=== PATIENT | male | born 1980 | race Caucasian/White ===

== ENCOUNTER 2016-08-24 10:48 | Emergency (ER) | payer SELFPAY ==
[2016-08-24 10:56] VITALS: BP 140/90
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
[2016-08-24 11:47] LABS: ABSOLUTE BASOPHILS # (AUTO) 0.1 10^3/uL (0.0-0.2); ABSOLUTE EOSINOPHILS # (AUTO) 0.2 10^3/uL (0.0-0.6); ABSOLUTE LYMPHOCYTES (AUTO) 1.9 10^3/uL (0.5-4.7); ABSOLUTE MONOCYTES (AUTO) 0.6 10^3/uL (0.1-1.4); ABSOLUTE NEUT (AUTO) 4.8 10^3/uL (1.7-8.2); BASOPHILS % (AUTO) 0.7 % (0-2); HEMATOCRIT 41.2 % (37.9-51.0); HEMOGLOBIN 14.2 g/dL (13.5-17.0); HGB HCT DIFFERENCE 1.4; LYMPHOCYTES % (AUTO) 24.9 % (13-45); MEAN CORPUSCULAR HEMOGLOBIN 30.8 pg (27.0-33.4); MEAN CORPUSCULAR HGB CONC 34.4 g/dL (32.0-36.0); MEAN CORPUSCULAR VOLUME 90 fl (80-97); MONOCYTES % (AUTO) 7.8 % (3-13); RED BLOOD COUNT 4.59 10^6/uL (4.35-5.55); RED CELL DISTRIBUTION WIDTH 13.6 % (11.5-14.0); SEGMENTED NEUTROPHILS % (AUTO) 64.6 % (42-78); WHITE BLOOD COUNT 7.4 10^3/uL (4.0-10.5)
[2016-08-24 11:52] LABS: APPEARANCE,URINE CLEAR; BILIRUBIN,URINE NEGATIVE (NEGATIVE); GLUCOSE, URINE NEGATIVE (NEGATIVE); KETONES,URINE NEGATIVE (NEGATIVE); LEUKOCYTE ESTERASE,URINE NEGATIVE (NEGATIVE); NITRITE,URINE NEGATIVE (NEGATIVE); PROTEIN,URINE NEGATIVE (NEGATIVE); URINE SPECIFIC GRAVITY 1.006; UROBILINOGEN,URINE NEGATIVE mg/dL (<2.0)
[2016-08-24 11:53] LABS: ALANINE AMINOTRANSFERASE 34 U/L (21-72); ALBUMIN 4.8 g/dL (3.5-5.0); ALKALINE PHOSPHATASE 102 U/L (38-126); ANION GAP 15 (5-19); ASPARTATE AMINO TRANSFERASE 24 U/L (17-59); BILIRUBIN,DIRECT 0.2 mg/dL (0.0-0.4); BILIRUBIN,TOTAL 0.4 mg/dL (0.2-1.3); BLOOD UREA NITROGEN 17 mg/dL (7-20); CALCIUM 9.6 mg/dL (8.4-10.2); CARBON DIOXIDE 29 mmol/L (22-30); CHLORIDE 100 mmol/L (98-107); CREATINE KINASE 69 U/L (55-170); CREATININE RESULT 0.75 mg/dL (0.52-1.25); GLUCOSE 104 mg/dL (75-110); LIPASE 123.3 U/L (23-300); POTASSIUM 3.9 mmol/L (3.6-5.0); SODIUM 143.7 mmol/L (137-145); TOTAL PROTEIN 7.2 g/dL (6.3-8.2)
[2016-08-24 12:05] LABS: CREATINE KINASE MB < 0.22 ng/mL (<4.55); TROPONIN I < 0.012 ng/mL
[2016-08-24] MEDS ORDERED: OXYCODONE-ACETAMINOPHEN 5-325 MG TABLET PO ONE (12:27)
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
--- NOTE | 2016-08-24 20:42 | EKG REPORT ---
SEVERITY:- NORMAL ECG - SINUS RHYTHM : Confirmed by: Obed Rollins 24-Aug-2016 20:41:46
== END 2016-08-24 13:01 | disposition home or self-care (01) ==
LOC: ER 10:48
DX: K08.89 Other specified disorders of teeth and supporting structures (principal); I10 Essential (primary) hypertension; R00.0 Tachycardia, unspecified; Z91.14 Patient's other noncompliance with medication regimen; F41.9 Anxiety disorder, unspecified; F32.9 Major depressive disorder, single episode, unspecified; Z79.899 Other long term (current) drug therapy; F17.200 Nicotine dependence, unspecified, uncomplicated; Z88.8 Allergy status to other drugs, medicaments and biological substances
CPT/HCPCS: 36415; 71020; 80053; 81001; 82550; 82553; 83690; 84484; 85025; 93005; 93010; 99283

== ENCOUNTER 2016-11-23 10:20 | Emergency (ER) | payer SELFPAY ==
[2016-11-23] MEDS ORDERED: IPRATROPIUM/ALBUTEROL 0.5-2.5 MG/3 ML AMPUL NEB ONE (11:09)
[2016-11-23] MEDS ORDERED: DEXAMETHASONE SOD PHOS INJ 10 MG/1 ML VIAL IM ONE (11:10)
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
--- NOTE | 2016-11-23 11:34 | RADIOLOGY REPORT (SQ) ---
EXAM DESCRIPTION: CHEST PA/LAT COMPLETED DATE/TIME: 11/23/2016 11:24 am REASON FOR STUDY: cough COMPARISON: Two-view chest 08/24/2016, 11/21/2010 EXAM PARAMETERS: NUMBER OF VIEWS: two views TECHNIQUE: Digital Frontal and Lateral radiographic views of the chest acquired. RADIATION DOSE: NA LIMITATIONS: none FINDINGS: LUNGS AND PLEURA: No opacities, masses or pneumothorax. No pleural effusion. MEDIASTINUM AND HILAR STRUCTURES: No masses or contour abnormalities. HEART AND VASCULAR STRUCTURES: Heart normal size. No evidence for failure. BONES: No acute findings. HARDWARE: None in the chest. OTHER: No other significant finding. IMPRESSION: NO SIGNIFICANT RADIOGRAPHIC FINDING IN THE CHEST. TECHNICAL DOCUMENTATION: JOB ID: [id number] [employer]- All Rights Reserved
[2016-11-23 12:18] VITALS: BP 120/74
[2016-11-23] MEDS ORDERED: GUAIFENESIN/CODEINE PHOS 100-10 MG/ 5 ML UDC PO ONE (12:22)
== END 2016-11-23 12:33 | disposition home or self-care (01) ==
LOC: ER 10:20
DX: J01.00 Acute maxillary sinusitis, unspecified (principal); J40 Bronchitis, not specified as acute or chronic; S41.132A Puncture wound without foreign body of left upper arm, initial encounter; M79.602 Pain in left arm; W26.8XXA Contact with other sharp object(s), not elsewhere classified, initial encounter; R05 Cough; H92.02 Otalgia, left ear; R09.82 Postnasal drip; R09.81 Nasal congestion; R51 Headache; R06.02 Shortness of breath; R06.2 Wheezing; I47.1 Supraventricular tachycardia; I10 Essential (primary) hypertension; F17.200 Nicotine dependence, unspecified, uncomplicated; Z79.899 Other long term (current) drug therapy; Z88.8 Allergy status to other drugs, medicaments and biological substances
CPT/HCPCS: 94640; 99283; 96372; 71020; J1100; J7620

== ENCOUNTER 2017-01-01 07:45 | Emergency (ER) | payer SELFPAY ==
[2017-01-01] MEDS ORDERED: NORMAL SALINE 1000 ML 1,000 ML IV PRN (07:55)
[2017-01-01] MEDS ORDERED: HYDROMORPHONE HCL INJ/PF 2 MG/ML AMPULE IV ONE (08:21)
[2017-01-01] MEDS ORDERED: PROCHLORPERAZINE EDISYLATE INJ 10 MG/2 ML VIAL IV ONE (08:21)
[2017-01-01] MEDS ORDERED: DIPHENHYDRAMINE HCL 50 MG/ML VIAL IV ONE (08:21)
--- NOTE | 2017-01-01 08:56 | ER Document Report ---
ED General - General Chief Complaint: Nausea/Vomiting/Diarrhea Stated Complaint: FLU LIKE SYMPTOMS Time Seen by Provider: 01/01/17 08:00 Notes: Patient is a 36-year-old male who presents with multiple complaints but overall states she just does not feel well. Patient admits to headache for the past 4 days is responded to Aleve but comes back. Patient states that he does have a history of migraines and has previously been on Imitrex but lost his insurance may no longer gets medication. Patient states that his headache is worse on the left side and it is a pounding sensation states it is intermittently sensitivity to light but otherwise denies any neck pain, back pain or neck stiffness. No dyspnea at this patient also admits to nausea, vomiting and diarrhea that started yesterday. Patient states that he has been having multiple loose bowel movements since last evening. Denies any abdominal pain at site of abdominal cramping as he has bowel movements. Currently denies any nausea. Has been throwing up since yesterday. Denies any blood or coffee- ground emesis. Patient also complaining of decreased urine output over the past 2 days. Patient also admits to intermittent left flank pain is been on and off for the past week. Past medical history significant for history of kidney stones, history of migraines Past surgical history significant for placement and removal of urethral stent on the left, tonsils and adenoids Social history: Daily tobacco user, denies any alcohol use. History of opiate medication use denies any history of IV drug use. Previously on methadone. Does not have a primary care provider TRAVEL OUTSIDE OF THE [place] IN LAST 30 DAYS: No - Related Data Allergies/Adverse Reactions: ketorolac [From Toradol] Allergy (Verified 01/01/17 07:53) ondansetron HCl [From Zofran] Allergy (Verified 01/01/17 07:53) Past Medical History - Social History Smoking Status: Current Every Day Smoker Frequency of alcohol use: Occasional Drug Abuse: Prescription drugs, Other Family History: Reviewed & Not Pertinent - Past Medical History Cardiac Medical History: Reports: Hx Hypertension, Hx Heart Murmur Neurological Medical History: Reports: Hx Migraine Renal/ Medical History: Reports: Hx Kidney Stones. Denies: Hx Peritoneal Dialysis Psychiatric Medical History: Reports: Hx Anxiety, Hx Depression - Situational Past Surgical History: Reports: Hx Kidney (Renal Surgery) - stent, Hx Tonsillectomy - Immunizations Immunizations up to date: Yes Hx Diphtheria, Pertussis, Tetanus Vaccination: Yes Review of Systems - Review of Systems Notes: REVIEW OF SYSTEMS: CONSTITUTIONAL : See HPI EENT: Denies eye, ear, throat, or mouth pain or symptoms. Denies nasal or sinus congestion or discharge. Denies throat, tongue, or mouth swelling or difficulty swallowing. CARDIOVASCULAR: Denies chest pain. Denies palpitations or racing or irregular heart beat. Denies ankle edema. RESPIRATORY: Denies cough, cold, or chest congestion. Denies shortness of breath, difficulty breathing, or wheezing. GASTROINTESTINAL: See HPI GENITOURINARY: see HPI denies any hematuria MUSCULOSKELETAL: Denies any muscle spasms, difficulty walking, extremity pain SKIN: Denies rash, lesions or sores. HEMATOLOGIC : Denies easy bruising or bleeding. LYMPHATIC: Denies swollen, enlarged glands. NEUROLOGICAL: Denies confusion or altered mental status. Denies passing out or loss of consciousness. Denies dizziness or lightheadedness. Denies headache. Denies weakness or paralysis or loss of use of either side. Denies problems with gait or speech. Denies sensory loss, numbness, or tingling. Denies seizures. PSYCHIATRIC: Denies anxiety or stress. Denies depression, suicidal ideation, or homicidal ideation. ALL OTHER SYSTEMS REVIEWED AND NEGATIVE. Dictation was performed using [email or web address] voice recognition software Physical Exam - Vital signs Vitals: Temp Pulse Resp BP Pulse Ox 100.2 F 149 H 16 138/83 H 98 01/01/17 07:53 01/01/17 07:53 01/01/17 07:53 01/01/17 07:53 01/01/17 07:53 - Notes Notes: PHYSICAL EXAM GENERAL: Alert, interacts well. HEAD: Normocephalic, atraumatic. EYES: Pupils equal, round, and reactive to light. Extraocular movements intact. ENT: Oral mucosa moist, tongue midline. NECK: Full range of motion. Supple. Trachea midline. LUNGS: Clear to auscultation bilaterally, no wheezes, rales, or rhonchi. No respiratory distress. HEART: Regular rate and rhythm. No murmurs, gallops, or rubs. ABDOMEN: Soft, nondistended, nontender. No guarding, rebound, or rigidity.. Bowel sounds present in all 4 quadrants. EXTREMITIES: Moves all 4 extremities spontaneously. No edema, radial and dorsalis pedis pulses 2/4 bilaterally. No cyanosis. NEUROLOGICAL: Alert and oriented x4. Normal speech. PSYCH: Normal affect, normal mood. SKIN: Warm, dry, normal turgor. No rashes or lesions noted. Course - Re-evaluation Re-evalutation: 01/01/17 11:54 Patient is a 36-year-old male who is hemodynamically stable, no acute distress and afebrile. Sinus tachycardia is resolved after IV fluids. Patient's headache is resolved after IV and subcutaneous medications. Patient presents with multiple vague complaints that did not appear to be concerning any acute life-threatening pathology. Vitals are within normal limits at triage and at time of discharge. Physical examination is unremarkable. Patient has tolerated oral intake without difficulty. Patient was not noted to be in distress at any point during their ER visit. CT limited does show a small stone in the left kidney without any evidence of acute renal failure or urinary tract infection therefore low clinical suspicion for complicated pyelonephritis. At this time, based on the reassuring evaluation, I do not suspect an acute MD, pulmonary embolus, aortic dissection, acute intra- abdominal pathology, stroke, or sepsis. Will discharge with return precautions and follow-up recommendations. Verbal discharge instructions given a the bedside and opportunity for questions given. Medication warnings reviewed. Patient is in agreement with this plan and has verbalized understanding of return precautions and the need for primary care follow-up in the next 24-72 hours. - Vital Signs Vital signs: Temp Pulse Resp BP Pulse Ox 99.5 F 149 H 12 120/68 96 01/01/17 10:48 01/01/17 07:53 01/01/17 11:01 01/01/17 11:15 01/01/17 11:15 - Laboratory Result Diagrams: 01/01/17 08:30 01/01/17 08:30 Laboratory results interpreted by me: 01/01/17 01/01/17 01/01/17 08:30 08:30 09:44 WBC 14.7 H RBC 3.95 L Hgb 12.0 L Hct 35.8 L Seg Neuts % (Manual) 90 H Band Neutrophils % 2 L Lymphocytes % (Manual) 2 L Abs Neuts (Manual) 13.5 H Abs Lymphs (Manual) 0.3 L Glucose 130 H Lipase 16.6 L Urine Blood SMALL H - Diagnostic Test Radiology reviewed: Image reviewed, Reports reviewed Discharge - Discharge Clinical Impression: Diarrhea Qualifiers: Diarrhea type: unspecified type Qualified Code(s): R19.7 - Diarrhea, unspecified Head ache Qualifiers: Headache type: cluster Headache chronicity pattern: episodic headache Intractability: not intractable Qualified Code(s): G44.019 - Episodic cluster headache, not intractable Condition: Good Disposition: HOME, SELF-CARE Instructions: Vomiting ([facility]), Diarrhea, Nonspecific ([facility]) Additional Instructions: HEADACHE: The physician does not feel that the headache you are experiencing has a serious underlying cause. Most headaches are due to emotional stress, with resultant muscle tension (tension headache). Occasionally, headaches are secondary to changes in the blood vessels of the scalp (vascular headache and migraine headache). Sometimes, a headache is the first symptom of another developing illness, such as a viral infection. You have no evidence of stroke, bleeding, meningitis, or other serious cause of your headache. The treatment of headaches varies with the severity and cause of the pain. Not all headaches need pain shots. In fact, there is evidence that using narcotics for headaches may make them worse in the long run. The physician will determine the therapy that's in your best interest. If you develop a fever, if the headache is different from any you've previously experienced, or if the headache progressively worsens, then call your physician at once or go to the emergency room. USE OF DIPHENHYDRAMINE: Diphenhydramine (Benadryl) is an antihistamine and has been recommended to help treat your headache and to prevent side effects of other medications used to treat headaches. The medication can be repeated four times daily. Age Elixir (12.5 mg/tsp) 25 mg pill adult 1-2 tabs Antihistamines may cause drowsiness, especially with the first dose. Do not operate machinery or drive while under the effects of the medication. Do not combine the medication with alcohol, or with any other medication without talking to your doctor. ANTINAUSEA MEDICATION: You have been given a medication to suppress nausea and vomiting. This type of medication can be given as a shot, pill, or suppository. It will usually last for many hours. Pills and shots usually last six to eight hours, suppositories last about 12 hours. For the typical illness, only one or two doses of the medication may be necessary. Mild lightheadedness may occur. This type of medicine can cause drowsiness. Do not drive or operate dangerous machinery while under its influence. Do not mix with alcohol. See your doctor at once if you have muscle spasms or tightness, or uncontrollable motions (particularly of the neck, mouth, or jaw). Persistent vomiting or severe lightheadedness should also be evaluated by the physician. INTRAVENOUS COMPAZINE FOR HEADACHE: You have received therapy for headaches, using intravenous Compazine. This treatment is dramatically successful in relieving the headache in about 50 percent of cases. When it works, it provides a rapid method of eliminating the headache without resorting to narcotics (and the problems associated with them). Most patients still feel fully alert after the Compazine, but others may be slightly drowsy. It's best not to drive or work with machinery for six to eight hours. Do not take alcohol or other medication unless you discuss it with the doctor. If you develop tightness and spasms in your muscles, especially the neck and tongue, you should return. This is a side effect which can be treated. PAIN MEDICATION INJECTION: You have received an injection of a pain medication. You should experience significant pain relief within 45 minutes. This drug is a narcotic - - it will impair your judgement, slow your reaction time and make you sleepy ( as well as relieve your pain). Narcotics also can cause nausea. You should not drive, work with machinery, or perform any task requiring mental alertness until all effects of the medication are gone -- six to eight hours. Do not take any alcohol, or sedatives, and do not take any other medication without checking with your physician. ABDOMINAL PAIN: There are many causes of abdominal pain. Pain can mean a serious problem requiring surgery (such as appendicitis). It can also be an innocent problem that goes away on its own (such as a viral infection). Often, time must pass to determine the cause of pain. The physician does not feel that hospitalization is necessary, at present. Things may change within the next 24 hours. Call the doctor or come back for re- examination if any problems occur, such as: (1) Pain that becomes more severe, steady, or becomes concentrated in one specific area. Also, pain that is more severe with movement or coughing. (2) Vomiting that persists or becomes more frequent. (3) Blood in the vomitus, urine, or bowel movements. Blood in the stool may have a tarry or black appearance. (4) Shaking chills or fever greater than 100 degrees F. (5) The abdomen becomes more distended or swollen. (6) Bowel movements cease. (7) Failure to improve as expected. NORMAL EXAM AND WORKUP: At this time, your examination and workup show no significant abnormality. No significant abnormal physical findings are noted. All laboratory, EKG, and imaging (x-ray, CT scans, ultrasound) studies that were ordered show no significant abnormality. Although your examination and all studies that were ordered showed no significant abnormal finding, there are no examinations and no studies that are 100% accurate. There is always the possibility that some abnormality could exist and not be detected with physical examination or within the limits and capabilities of laboratory and other studies. You should return or follow up as you were instructed on your visit today for further evaluation if your symptoms do not resolve. FOLLOW-UP CARE: If you have been referred to a physician for follow-up care, call the physician s office for an appointment as you were instructed or within the next two days. If you experience worsening or a significant change in your symptoms, notify the physician immediately or return to the Emergency Department at any time for re-evaluation. Prescriptions: Promethazine HCl [Phenergan 25 mg Tablet] 1 - 2 tab PO Q6H PRN #15 tablet PRN Reason: Sumatriptan Succinate [Imitrex 25 mg Tablet] 25 mg PO ASDIR PRN #9 tablet PRN Reason: Referrals: [facility] [NO LOCAL MD] - Follow up as needed LISS FLORES MD [NO LOCAL MD] - Follow up as needed
[2017-01-01 09:01] LABS: HEMATOCRIT 35.8 % (37.9-51.0); HGB HCT DIFFERENCE 0.2; MEAN CORPUSCULAR HEMOGLOBIN 30.3 pg (27.0-33.4); MEAN CORPUSCULAR HGB CONC 33.4 g/dL (32.0-36.0); MEAN CORPUSCULAR VOLUME 91 fl (80-97); RED BLOOD COUNT 3.95 10^6/uL (4.35-5.55); RED CELL DISTRIBUTION WIDTH 13.4 % (11.5-14.0); WHITE BLOOD COUNT 14.7 10^3/uL (4.0-10.5)
--- NOTE | 2017-01-01 09:01 | RADIOLOGY REPORT (SQ) ---
EXAM DESCRIPTION: CHEST PA/LAT COMPLETED DATE/TIME: 01/01/2017 8:50 am REASON FOR STUDY: cough COMPARISON: 11/23/2016. EXAM PARAMETERS: NUMBER OF VIEWS: two views TECHNIQUE: Digital Frontal and Lateral radiographic views of the chest acquired. RADIATION DOSE: NA LIMITATIONS: none FINDINGS: LUNGS AND PLEURA: No opacities, masses or pneumothorax. No pleural effusion. MEDIASTINUM AND HILAR STRUCTURES: No masses or contour abnormalities. HEART AND VASCULAR STRUCTURES: Heart normal size. No evidence for failure. BONES: No acute findings. HARDWARE: None in the chest. OTHER: No other significant finding. IMPRESSION: NO SIGNIFICANT RADIOGRAPHIC FINDING IN THE CHEST. TECHNICAL DOCUMENTATION: JOB ID: [id number] [employer]- All Rights Reserved
[2017-01-01 09:15] LABS: ALANINE AMINOTRANSFERASE 27 U/L (21-72); ALBUMIN 3.9 g/dL (3.5-5.0); ALKALINE PHOSPHATASE 104 U/L (38-126); ANION GAP 10 (5-19); ASPARTATE AMINO TRANSFERASE 39 U/L (17-59); BILIRUBIN,DIRECT 0.3 mg/dL (0.0-0.4); BILIRUBIN,TOTAL 0.6 mg/dL (0.2-1.3); BLOOD UREA NITROGEN 16 mg/dL (7-20); CALCIUM 8.8 mg/dL (8.4-10.2); CARBON DIOXIDE 28 mmol/L (22-30); CHLORIDE 104 mmol/L (98-107); CREATININE RESULT 0.81 mg/dL (0.52-1.25); GLUCOSE 130 mg/dL (75-110); LIPASE 16.6 U/L (23-300); POTASSIUM 4.1 mmol/L (3.6-5.0); SODIUM 141.9 mmol/L (137-145); TOTAL PROTEIN 6.9 g/dL (6.3-8.2)
[2017-01-01 09:40] LABS: BAND NEUTROPHILS % (MANUAL) 2 % (3-5); BASOPHILS % (MANUAL) 0 % (0-2); EOSINOPHILS % (MANUAL) 1 % (0-6); LYMPHOCYTES % (MANUAL) 2 % (13-45); TOTAL CELLS COUNTED 100
[2017-01-01 09:41] LABS: OVALOCYTES SLIGHT; PLATELET CLUMPS PRESENT; POIKILOCYTOSIS SLIGHT; POLYCHROMASIA 1+; TOXIC GRANULATION SLIGHT; TOXIC VACUOLATION PRESENT
--- NOTE | 2017-01-01 09:42 | RADIOLOGY REPORT (SQ) ---
EXAM DESCRIPTION: CT LTD RENAL STONE PROTOCOL ON COMPLETED DATE/TIME: 01/01/2017 9:32 am REASON FOR STUDY: left flank pain COMPARISON: 07/19/2015. TECHNIQUE: CT scan of the abdomen and pelvis performed without intravenous or oral contrast. Images reviewed with lung, soft tissue, and bone windows. Reconstructed coronal and sagittal MPR images revi ewed. All images stored on PACS. All CT scanners at this facility use dose modulation, iterative reconstruction, and/or weight based d osing when appropriate to reduce radiation dose to as low as reasonably achievable (ALARA). [facility]: Dose Right [facility]: CareDose [facility]: Dose Right [facility]: Teradose 4D [facility]: [employer] Systems RADIATION DOSE: Up-to-date CT equipment and radiation dose reduction techniques were employed. CTDIv ol: 5.2 mGy. DLP: 279 mGy-cm.mGy. LIMITATIONS: None. FINDINGS: LOWER CHEST: No significant findings. No nodules or infiltrates. NON-CONTRASTED LIVER, SPLEEN, ADRENALS: Evaluation limited by lack of IV contrast. No identified sign ificant masses. PANCREAS: No masses. No peripancreatic inflammatory changes. GALLBLADDER: No identified stones by CT criteria. No inflammatory changes to suggest cholecystitis. RIGHT KIDNEY AND URETER: No suspicious masses. Assessment limited by lack of IV contrast. No signif icant calcifications. No hydronephrosis or hydroureter. LEFT KIDNEY AND URETER: No suspicious masses. Assessment limited by lack of IV contrast. Tiny punct ate lower pole calyceal calculus (axial series 3, image 34 and coronal series 601, image 40). No hy dronephrosis or hydroureter. AORTA AND RETROPERITONEUM: No aneurysm. No retroperitoneal masses or adenopathy. BOWEL AND PERITONEAL CAVITY: No obvious masses or inflammatory changes. No free fluid. APPENDIX: Normal. PELVIS, BLADDER, AND ABDOMINAL WALL:No abnormal masses. No free fluid. Bladder normal. BONES: No significant findings. OTHER: No other significant finding. IMPRESSION: TINY NONOBSTRUCTING LOWER POLE CALYCEAL CALCULUS IN THE LEFT KIDNEY. NO URETERAL CALCUL I. NO OTHER SIGNIFICANT OR ACUTE PROCESS IN THE ABDOMEN OR PELVIS. TECHNICAL DOCUMENTATION: JOB ID: [id number] Quality ID # [id number]: Final reports with documentation of one or more dose reduction techniques (e.g., Au tomated exposure control, adjustment of the mA and/or kV according to patient size, use of iterative reconstruction technique) 2010 [employer]- All Rights Reserved
[2017-01-01 09:58] LABS: APPEARANCE,URINE CLEAR; BILIRUBIN,URINE NEGATIVE (NEGATIVE); GLUCOSE, URINE NEGATIVE (NEGATIVE); KETONES,URINE NEGATIVE (NEGATIVE); LEUKOCYTE ESTERASE,URINE NEGATIVE (NEGATIVE); NITRITE,URINE NEGATIVE (NEGATIVE); PROTEIN,URINE NEGATIVE (NEGATIVE); URINE SPECIFIC GRAVITY 1.021; UROBILINOGEN,URINE NEGATIVE mg/dL (<2.0)
[2017-01-01] MEDS ORDERED: SUMATRIPTAN SUCCINATE INJ/PF 6 MG/0.5 ML SDV SUBCUT ONE (10:38)
[2017-01-01 11:22] VITALS: BP 120/68
== END 2017-01-01 11:22 | disposition home or self-care (01) ==
LOC: ER 07:45
DX: G44.019 Episodic cluster headache, not intractable (principal); R11.2 Nausea with vomiting, unspecified; R19.7 Diarrhea, unspecified; R10.9 Unspecified abdominal pain; R39.198 Other difficulties with micturition; F17.200 Nicotine dependence, unspecified, uncomplicated
CPT/HCPCS: 99284; 96372; 96374; 96375; 36415; 83690; 85025; 80053; 81001; 83605; 71020; 76380; J1200; J1170; J0780; J3030; J7030

== ENCOUNTER 2017-06-04 13:52 | Emergency (ER) | payer SELFPAY ==
[2017-06-04] MEDS ORDERED: PSEUDOEPHEDRINE HCL 30 MG TABLET PO ONE (15:04)
[2017-06-04] MEDS ORDERED: AMOXICILLIN TRIHYDRATE 500 MG CAPSULE PO ONE (15:04)
[2017-06-04] MEDS ORDERED: IBUPROFEN 800 MG TABLET PO ONE (15:05)
--- NOTE | 2017-06-04 15:11 | ER Document Report ---
HPI - HPI Patient complains to provider of: Left ear pain Pain Level: 4 Context: Patient is a 36-year-old male presents emergency department complaining of left ear pain for the past 3 days. Patient states it started with a sharp pressure then to a sharp stabbing pain with loss of hearing. He has had associated drainage from that ear. Otherwise denies any fevers. States that he has not been taking anything for sinus decongestion. His only been taking Tylenol at home for pain. Past Medical History - Social History Smoking Status: Current Every Day Smoker Family History: Reviewed & Not Pertinent - Past Medical History Cardiac Medical History: Reports: Hx Hypertension, Hx Heart Murmur Neurological Medical History: Reports: Hx Migraine Renal/ Medical History: Reports: Hx Kidney Stones. Denies: Hx Peritoneal Dialysis Psychiatric Medical History: Reports: Hx Anxiety, Hx Depression - Situational Past Surgical History: Reports: Hx Kidney (Renal Surgery) - stent, Hx Tonsillectomy - Immunizations Immunizations up to date: Yes Hx Diphtheria, Pertussis, Tetanus Vaccination: Yes Vertical Provider Document - CONSTITUTIONAL Agree With Documented VS: Yes Notes: PHYSICAL EXAM GENERAL: Alert, interacts well. HEENT: NCAT, pale conjunctiva, extraocular movements intact, pupils PERRL. external ear normal, no evidence of external auditory canal tenderness, blood/ drainage, cerumen impaction, TM intact with and small perforation at approximately 7:00 evidence of effusion, MMM, Uvula midline. Airway patent. No evidence of tonsillar enlargement, peritonsillar abscess, retropharyngeal abscess. NECK: Full range of motion. Supple. Trachea midline. LUNGS: Clear to auscultation bilaterally, no wheezes, rales, or rhonchi. No respiratory distress. HEART: Regular rate and rhythm. No murmurs, gallops, or rubs. NEUROLOGICAL: Alert and oriented x4. Normal speech. PSYCH: Normal affect, normal mood. SKIN: Warm, dry, normal turgor. No rashes or lesions noted. - INFECTION CONTROL TRAVEL OUTSIDE OF THE [place] IN LAST 30 DAYS: No Course - Re-evaluation Re-evalutation: 06/04/17 15:06 Patient is a 36-year-old male is hemodynamically stable, no acute distress and afebrile with presentation most consistent with an acute serous otitis media and associated perforation . Clinical history as well as exam is most consistent with this diagnosis. Based on history and examination do not suspect an acute meningitis, encephalitis, peritonsillar abscess, or retropharyngeal abscess. Patient is otherwise well in appearance, no acute distress. Vitals otherwise within normal limits. The patient will be started on amoxicillin twice a day for 10 days as well as ofloxacin drops. At this time will discharge with return precautions and follow-up recommendations with ear nose and throat this week. Verbal discharge instructions given a the bedside and opportunity for questions given. Medication warnings reviewed. Patient in agreement with this plan and has verbalized understanding of return precautions and the need for primary care follow-up in the next 24-72 hours. Discharge - Discharge Clinical Impression: Tympanic membrane perforation, nontraumatic Qualifiers: Laterality: left Qualified Code(s): H72.92 - Unspecified perforation of tympanic membrane, left ear Condition: Good Disposition: HOME, SELF-CARE Instructions: Perforated Eardrum ([facility]) Additional Instructions: Please start taking [id number] pseudoephedrine or phenylephrine to function as a decongestant to relieve the pressure behind your ear Prescriptions: Amoxicillin 500 mg PO BID #20 capsule Ofloxacin 10 ml OP BID 14 Days drops Forms: Return to Work Referrals: FRANSISCO LEVY DO [ASSOCIATE] - Follow up in 3-5 days
[2017-06-04 16:11] VITALS: BP 128/67
== END 2017-06-04 16:01 | disposition home or self-care (01) ==
LOC: ER 13:52
DX: H72.92 Unspecified perforation of tympanic membrane, left ear (principal); H92.02 Otalgia, left ear; F17.200 Nicotine dependence, unspecified, uncomplicated; I10 Essential (primary) hypertension; Z87.442 Personal history of urinary calculi
CPT/HCPCS: 99282

== ENCOUNTER 2017-11-12 11:37 | Emergency (ER) | payer SELFPAY ==
[2017-11-12] MEDS ORDERED: PROCHLORPERAZINE EDISYLATE INJ 10 MG/2 ML VIAL IM ONE (12:38)
[2017-11-12] MEDS ORDERED: DIPHENHYDRAMINE HCL 50 MG/ML VIAL IM ONE (12:38)
--- NOTE | 2017-11-12 12:41 | ER Document Report ---
ED Medical Screen (RME) - General Chief Complaint: Headache Stated Complaint: POSSIBLE FEVER/ VOMITTING Time Seen by Provider: 11/12/17 12:20 Notes: 37-year-old male presents emergency department complaining of a headache for the past 24 hours associated with fever up to 104.9 at home, states that he has been taking Tylenol to bring the fever down but has not changed his headache. Patient states that the headache hurts everywhere, it no longer feels like his brain is jarring in his head now that his fever has decreased but it still is giving him severe pain, complains of photophobia and phonophobia, complaints of pain in the back of his head and his neck as well. States that he has had had a headache and fever like this 3 other times and twice he has had lumbar punctures that were negative. Patient does not know why he continues to have headaches like this. Last one was in 2016. TRAVEL OUTSIDE OF THE [place] IN LAST 30 DAYS: No - Related Data Allergies/Adverse Reactions: ketorolac [From Toradol] Allergy (Verified 11/12/17 11:40) ondansetron HCl [From Zofran] Allergy (Verified 11/12/17 11:40) Past Medical History - General Information source: Patient - Social History Cigarette use (# per day): Yes Chew tobacco use (# tins/day): No Frequency of alcohol use: Occasional Drug Abuse: None - Past Medical History Cardiac Medical History: Reports: Hx Hypertension, Hx Heart Murmur Neurological Medical History: Reports: Hx Migraine Renal/ Medical History: Reports: Hx Kidney Stones. Denies: Hx Peritoneal Dialysis Psychiatric Medical History: Reports: Hx Anxiety, Hx Depression - Situational Past Surgical History: Reports: Hx Kidney (Renal Surgery) - stent, Hx Tonsillectomy - Immunizations Immunizations up to date: Yes Hx Diphtheria, Pertussis, Tetanus Vaccination: Yes Review of Systems - Review of Systems Constitutional: See HPI, Fever EENT: See HPI Neurological/Psychological: See HPI Physical Exam - Vital signs Vitals: Temp Pulse Resp BP Pulse Ox 100.6 F H 147 H 14 150/82 H 98 11/12/17 11:41 11/12/17 11:41 11/12/17 11:41 11/12/17 11:41 11/12/17 11:41 Interpretation: Hypertensive, Tachycardic, Febrile - Notes Notes: Appears uncomfortable, holding his head, wearing sunglasses, complains of pain with palpation of the bilateral temporal arteries, able to move his neck without difficulty although he does complain of pain. Heart is tachycardic. Course - Vital Signs Vital signs: Temp Pulse Resp BP Pulse Ox 100.6 F H 147 H 14 150/82 H 98 11/12/17 11:41 11/12/17 11:41 11/12/17 11:41 11/12/17 11:41 11/12/17 11:41
[2017-11-12 13:17] LABS: APPEARANCE,URINE SLIGHTLY-CLOUDY; BILIRUBIN,URINE NEGATIVE (NEGATIVE); COLOR,URINE YELLOW; GLUCOSE, URINE NEGATIVE (NEGATIVE); KETONES,URINE NEGATIVE (NEGATIVE); LEUKOCYTE ESTERASE,URINE NEGATIVE (NEGATIVE); NITRITE,URINE NEGATIVE (NEGATIVE); PROTEIN,URINE NEGATIVE (NEGATIVE); URINE SPECIFIC GRAVITY 1.026
--- NOTE | 2017-11-12 13:24 | RADIOLOGY REPORT (SQ) ---
EXAM DESCRIPTION: CHEST SINGLE VIEW COMPLETED DATE/TIME: 11/12/2017 1:10 pm REASON FOR STUDY: fevers COMPARISON: 01/01/2017 EXAM PARAMETERS: NUMBER OF VIEWS: One view. TECHNIQUE: Single frontal radiographic view of the chest acquired. RADIATION DOSE: NA LIMITATIONS: None. FINDINGS: LUNGS AND PLEURA: No opacities, masses or pneumothorax. No pleural effusion. MEDIASTINUM AND HILAR STRUCTURES: No masses. Contour normal. HEART AND VASCULAR STRUCTURES: Heart normal in size. Normal vasculature. BONES: No acute findings. HARDWARE: None in the chest. OTHER: No other significant finding. IMPRESSION: NO ACUTE RADIOGRAPHIC FINDING IN THE CHEST. TECHNICAL DOCUMENTATION: JOB ID: [id number] [employer]- All Rights Reserved Reading location - IP/workstation name: [email or web address]
[2017-11-12] MEDS ORDERED: ACETAMINOPHEN 325 MG TABLET PO ONE (13:43)
[2017-11-12 13:46] LABS: ABSOLUTE LYMPHOCYTES (AUTO) 1.1 10^3/uL (0.5-4.7); ABSOLUTE MONOCYTES (AUTO) 0.6 10^3/uL (0.1-1.4); ABSOLUTE NEUT (AUTO) 6.3 10^3/uL (1.7-8.2); BASOPHILS % (AUTO) 0.3 % (0-2); EOSINOPHILS % (AUTO) 0.5 % (0-6); HEMATOCRIT 36.9 % (37.9-51.0); HEMOGLOBIN 12.6 g/dL (13.5-17.0); LYMPHOCYTES % (AUTO) 13.4 % (13-45); MEAN CORPUSCULAR HEMOGLOBIN 30.5 pg (27.0-33.4); MEAN CORPUSCULAR HGB CONC 34.2 g/dL (32.0-36.0); MEAN CORPUSCULAR VOLUME 89 fl (80-97); PLATELET COUNT 217 10^3/uL (150-450); RED BLOOD COUNT 4.14 10^6/uL (4.35-5.55); RED CELL DISTRIBUTION WIDTH 12.5 % (11.5-14.0); SEGMENTED NEUTROPHILS % (AUTO) 77.8 % (42-78); TOTAL CELLS COUNTED % (AUTO) 100 %; WHITE BLOOD COUNT 8.1 10^3/uL (4.0-10.5)
[2017-11-12 14:01] LABS: ALANINE AMINOTRANSFERASE 144 U/L (21-72); ALBUMIN 4.3 g/dL (3.5-5.0); ALKALINE PHOSPHATASE 117 U/L (38-126); ANION GAP 12 (5-19); ASPARTATE AMINO TRANSFERASE 68 U/L (17-59); BILIRUBIN,DIRECT 0.3 mg/dL (0.0-0.4); BILIRUBIN,TOTAL 0.6 mg/dL (0.2-1.3); BLOOD UREA NITROGEN 13 mg/dL (7-20); CALCIUM 9.1 mg/dL (8.4-10.2); CARBON DIOXIDE 26 mmol/L (22-30); CHLORIDE 103 mmol/L (98-107); GLUCOSE 101 mg/dL (75-110); POTASSIUM 4.3 mmol/L (3.6-5.0); SODIUM 141.4 mmol/L (137-145); TOTAL PROTEIN 7.5 g/dL (6.3-8.2)
[2017-11-12] MEDS ORDERED: NORMAL SALINE 1000 ML 2,000 ML IV ONE (14:17)
[2017-11-12] MEDS ORDERED: CEFTRIAXONE 2 GM/D5W RTU 2 GM/50 ML RTUPB IV ONE (14:32)
[2017-11-12] MEDS ORDERED: IBUPROFEN 600 MG TABLET PO ONE (14:33)
[2017-11-12 14:40] LABS: PROTHROMBIN TIME 14.8 SEC (11.4-15.4)
[2017-11-12] MEDS ORDERED: DEXAMETHASONE SOD PHOS INJ 10 MG/1 ML VIAL IM ONE (14:55)
[2017-11-12] MEDS ORDERED: ACYCLOVIR SODIUM INJ/PF 500 MG/10 ML SDV IV ONE (14:56)
[2017-11-12] MEDS ORDERED: LIDOCAINE 1% INJ-PF (10 MG/ML) 30 ML SDV INJ ONE (14:56)
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
--- NOTE | 2017-11-12 15:35 | EKG REPORT ---
SEVERITY:- OTHERWISE NORMAL ECG - SINUS TACHYCARDIA : Confirmed by: Gloria Fisher MD 12-Nov-2017 15:34:15
--- NOTE | 2017-11-12 15:40 | RADIOLOGY REPORT (SQ) ---
EXAM DESCRIPTION: CT FACIAL AREA WITHOUT COMPLETED DATE/TIME: 11/12/2017 3:30 pm REASON FOR STUDY: head injury COMPARISON: None. TECHNIQUE: Noncontrasted images through the facial bones and orbits windowed for bone and soft tissu e. Additional coronal and sagittal reconstructed images reviewed. All images stored on PACS. All CT scanners at this facility use dose modulation, iterative reconstruction, and/or weight based d osing when appropriate to reduce radiation dose to as low as reasonably achievable (ALARA). [facility]: Dose Right [facility]: CareDose [facility]: Dose Right [facility]: Teradose 4D [facility]: [employer] RADIATION DOSE: CT Rad equipment meets quality standard of care and radiation dose reduction techniq ues were employed. CTDIvol: 30.4 mGy. DLP: 614 mGy-cm. mGy. LIMITATIONS: None. FINDINGS: FACIAL BONES: No fracture or bone lesion. ORBITS: Intact. No fracture. Symmetric intact globes and retroorbital soft tissues. PARANASAL SINUSES: Mucosal thickening right infundibulum and both nasofrontal recesses. SOFT TISSUES: No mass or edema. INFERIOR BRAIN: See separate report. OTHER: No other significant finding. IMPRESSION: NO ACUTE FINDINGS. TECHNICAL DOCUMENTATION: JOB ID: [id number] Quality ID # [id number]: Final reports with documentation of one or more dose reduction techniques (e.g., Au tomated exposure control, adjustment of the mA and/or kV according to patient size, use of iterative reconstruction technique) 2010 [employer]- All Rights Reserved Reading location - IP/workstation name: [email or web address]
--- NOTE | 2017-11-12 15:42 | RADIOLOGY REPORT (SQ) ---
EXAM DESCRIPTION: CT HEAD WITHOUT COMPLETED DATE/TIME: 11/12/2017 3:30 pm REASON FOR STUDY: headache, fever, head injury COMPARISON: None. TECHNIQUE: Axial images acquired through the brain without intravenous contrast. Images reviewed wi th bone, brain and subdural windows. Additional sagittal and coronal reconstructions were generated. Images stored on PACS. All CT scanners at this facility use dose modulation, iterative reconstruction, and/or weight based d osing when appropriate to reduce radiation dose to as low as reasonably achievable (ALARA). [facility]: Dose Right [facility]: CareDose [facility]: Dose Right [facility]: Teradose 4D [facility]: [employer] RADIATION DOSE: CT Rad equipment meets quality standard of care and radiation dose reduction techniq ues were employed. CTDIvol: 53.2 mGy. DLP: 1017 mGy-cm. mGy. LIMITATIONS: None. FINDINGS: VENTRICLES: Normal size and contour. CEREBRUM: No masses. No hemorrhage. No midline shift. No evidence for acute infarction. Normal gra y/white matter differentiation. No areas of low density in the white matter. CEREBELLUM: No masses. No hemorrhage. No alteration of density. No evidence for acute infarction. EXTRAAXIAL SPACES: No fluid collections. No masses. ORBITS AND GLOBE: No intra- or extraconal masses. Normal contour of globe without masses. CALVARIUM: No fracture. PARANASAL SINUSES: See separate report. SOFT TISSUES: No mass or hematoma. OTHER: No other significant finding. IMPRESSION: NORMAL BRAIN CT WITHOUT CONTRAST. EVIDENCE OF ACUTE STROKE: NO. COMMENT: Quality ID # [id number]: Final reports with documentation of one or more dose reduction techniques (e.g., Automated exposure control, adjustment of the mA and/or kV according to patient size, use of iterative reconstruction technique) TECHNICAL DOCUMENTATION: JOB ID: [id number] [employer]- All Rights Reserved Reading location - IP/workstation name: [email or web address]
[2017-11-12 17:16] LABS: APPEARANCE,URINE CLEAR; BILIRUBIN,URINE NEGATIVE (NEGATIVE); COLOR,URINE YELLOW; GLUCOSE, URINE NEGATIVE (NEGATIVE); KETONES,URINE NEGATIVE (NEGATIVE); LEUKOCYTE ESTERASE,URINE NEGATIVE (NEGATIVE); NITRITE,URINE NEGATIVE (NEGATIVE); PROTEIN,URINE NEGATIVE (NEGATIVE); URINE SPECIFIC GRAVITY 1.015; UROBILINOGEN,URINE NEGATIVE mg/dL (<2.0)
[2017-11-12] MEDS ORDERED: PROMETHAZINE HCL 25 MG TABLET PO ONE (18:18)
[2017-11-12] MEDS ORDERED: MORPHINE SULFATE 10 MG/ML INJ IV ONE (18:18)
[2017-11-12] MEDS ORDERED: HYDROMORPHONE HCL INJ/PF 2 MG/ML AMPULE IV ONE (18:45)
[2017-11-12 18:53] LABS: GLUCOSE,CSF 76 mg/dL (40-70); PROTEIN,CSF 50 mg/dL (12-60)
[2017-11-12 19:12] LABS: CSF TUBE NUMBER 1
[2017-11-12 19:13] LABS: APPEARANCE ALL TUBES CLEAR; COLOR ALL TUBES COLORLESS; CSF TOTAL VOLUME 7.1 CC; RED BLOOD CELL,CSF 3 /uL (0-10); VOLUME TUBE 1 1.5 CC; VOLUME TUBE 3 1.8 CC; VOLUME TUBE 4 1.8 CC; WHITE BLOOD CELL,CSF 1 /uL (0-5)
[2017-11-12 19:15] LABS: COLOR ALL TUBES COLORLESS; CSF TUBE NUMBER 4
[2017-11-12 19:16] LABS: APPEARANCE ALL TUBES CLEAR; CSF TOTAL VOLUME 7.1 CC; RED BLOOD CELL,CSF 0 /uL (0-10); VOLUME TUBE 1 1.5 CC; VOLUME TUBE 3 1.8 CC; VOLUME TUBE 4 1.8 CC; WHITE BLOOD CELL,CSF 2 /uL (0-5)
[2017-11-12 21:14] VITALS: BP 119/66
== END 2017-11-12 21:14 | disposition home or self-care (01) ==
LOC: ER 11:37
DX: R51 Headache (principal); J34.89 Other specified disorders of nose and nasal sinuses; Y04.2XXA Assault by strike against or bumped into by another person, initial encounter; R50.9 Fever, unspecified; R11.2 Nausea with vomiting, unspecified; H53.149 Visual discomfort, unspecified; R30.0 Dysuria; R00.0 Tachycardia, unspecified; R79.89 Other specified abnormal findings of blood chemistry; I10 Essential (primary) hypertension; Z88.8 Allergy status to other drugs, medicaments and biological substances
CPT/HCPCS: 93005; 99285; 96372; 96361; 96375; 96365; 96367; 36415; 87040; 87070 ×2; 87086; 87205; 87880; 87252; 85025; 85610; 85730; 89050; 82945; 84157; 80053; 81001; 86701; 83605; 71045; 70450; 70486; 93010; 62270; J1200; J0133; J3490; J1170; J0780; J7030; J1100; J0696

== ENCOUNTER 2017-11-13 15:16 | Emergency (ER) | payer SELFPAY ==
--- NOTE | 2017-11-13 17:48 | ER Document Report ---
ED Medical Screen (RME) - General Chief Complaint: Headache Stated Complaint: HEADACHE,FEVER Time Seen by Provider: 11/13/17 17:40 Mode of Arrival: Ambulatory Information source: Patient Notes: 37 yo male severe migraine 4.5/5 back of head around to the fron above the eyes , worse with deep breath or turns head it throbbs. Started on sunday with fever 104 while at home. Seen in ER sunday by Edward Mao. Woke up morning, not 100 %, got the fever to 104 again today. tx headache, spinal tap, work up was negative. This has happened 2 times before at [facility] (past 6 months) for ZHANG and fever, the taps were negatuve and the major headache resolved the next day. New symptom is low back pain with radiation into the right buttocks and papular rash that is non tender to the left shoulder. TRAVEL OUTSIDE OF THE [place] IN LAST 30 DAYS: No - Related Data Allergies/Adverse Reactions: ketorolac [From Toradol] Allergy (Verified 11/12/17 11:40) ondansetron HCl [From Zofran] Allergy (Verified 11/12/17 11:40) Past Medical History - Past Medical History Cardiac Medical History: Reports: Hx Hypertension, Hx Heart Murmur Neurological Medical History: Reports: Hx Migraine Renal/ Medical History: Reports: Hx Kidney Stones. Denies: Hx Peritoneal Dialysis Psychiatric Medical History: Reports: Hx Anxiety, Hx Depression - Situational Past Surgical History: Reports: Hx Kidney (Renal Surgery) - stent, Hx Tonsillectomy - Immunizations Immunizations up to date: Yes Hx Diphtheria, Pertussis, Tetanus Vaccination: Yes Physical Exam - Vital signs Vitals: Temp Pulse Resp BP Pulse Ox 100.3 F 110 H 20 123/72 99 11/13/17 15:24 11/13/17 15:24 11/13/17 15:24 11/13/17 15:24 11/13/17 15:24 Course - Vital Signs Vital signs: Temp Pulse Resp BP Pulse Ox 100.3 F 110 H 20 123/72 99 11/13/17 15:24 11/13/17 15:24 11/13/17 15:24 11/13/17 15:24 11/13/17 15:24
[2017-11-13] MEDS ORDERED: NORMAL SALINE 1000 ML 1,000 ML IV ONE (17:53)
[2017-11-13] MEDS ORDERED: PROCHLORPERAZINE EDISYLATE INJ 10 MG/2 ML VIAL IM ONE (17:54)
[2017-11-13] MEDS ORDERED: DIPHENHYDRAMINE HCL 50 MG/ML VIAL IV ONE (17:54)
[2017-11-13 19:02] LABS: VENOUS BLOOD BASE EXCESS -2.4 mmol/L; VENOUS BLOOD HCO3 22.8 mmol/L (20-32); VENOUS BLOOD PCO2 40.9 mmHg (35-63); VENOUS BLOOD PH 7.36 (7.30-7.42)
[2017-11-13 19:06] LABS: ABSOLUTE LYMPHOCYTES (AUTO) 1.2 10^3/uL (0.5-4.7); ABSOLUTE MONOCYTES (AUTO) 1.6 10^3/uL (0.1-1.4); ABSOLUTE NEUT (AUTO) 15.8 10^3/uL (1.7-8.2); BASOPHILS % (AUTO) 0.2 % (0-2); EOSINOPHILS % (AUTO) 0.1 % (0-6); HEMATOCRIT 36.5 % (37.9-51.0); HEMOGLOBIN 12.1 g/dL (13.5-17.0); LYMPHOCYTES % (AUTO) 6.4 % (13-45); MEAN CORPUSCULAR HEMOGLOBIN 29.8 pg (27.0-33.4); MEAN CORPUSCULAR HGB CONC 33.3 g/dL (32.0-36.0); MEAN CORPUSCULAR VOLUME 90 fl (80-97); MONOCYTES % (AUTO) 8.4 % (3-13); PLATELET COUNT 263 10^3/uL (150-450); RED BLOOD COUNT 4.07 10^6/uL (4.35-5.55); RED CELL DISTRIBUTION WIDTH 12.7 % (11.5-14.0); SEGMENTED NEUTROPHILS % (AUTO) 84.9 % (42-78); TOTAL CELLS COUNTED % (AUTO) 100 %
[2017-11-13 19:08] LABS: WHITE BLOOD COUNT 18.6 10^3/uL (4.0-10.5)
[2017-11-13 19:18] LABS: ALANINE AMINOTRANSFERASE 102 U/L (21-72); ALBUMIN 3.9 g/dL (3.5-5.0); ALKALINE PHOSPHATASE 91 U/L (38-126); ANION GAP 11 (5-19); ASPARTATE AMINO TRANSFERASE 36 U/L (17-59); BILIRUBIN,DIRECT 0.4 mg/dL (0.0-0.4); BILIRUBIN,TOTAL 0.4 mg/dL (0.2-1.3); BLOOD UREA NITROGEN 9 mg/dL (7-20); CALCIUM 9.5 mg/dL (8.4-10.2); CARBON DIOXIDE 27 mmol/L (22-30); CHLORIDE 108 mmol/L (98-107); GLUCOSE 101 mg/dL (75-110); POTASSIUM 4.1 mmol/L (3.6-5.0); TOTAL PROTEIN 6.8 g/dL (6.3-8.2)
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
[2017-11-13] MEDS ORDERED: FENTANYL CITRATE INJ/PF 100 MCG/2 ML AMPUL IV ONE (20:22)
[2017-11-13] MEDS ORDERED: HALOPERIDOL LACTATE INJ 5 MG/1 ML VIAL IM ONE (20:33)
[2017-11-13] MEDS ORDERED: DIAZEPAM INJ 10 MG/2 ML DISP.SYRIN IM ONE (20:51)
[2017-11-13 22:27] VITALS: BP 105/59
== END 2017-11-13 22:36 | disposition home or self-care (01) ==
LOC: ER 15:16
DX: R51 Headache (principal); R50.9 Fever, unspecified; F17.200 Nicotine dependence, unspecified, uncomplicated; Z87.442 Personal history of urinary calculi
CPT/HCPCS: 99284; 96372; 96361; 96374; 96375; 36415; 87040; 85025; 80053; 82803; 83605; J3360; J1200; J3010; J7030

== ENCOUNTER 2017-11-15 06:24 | Emergency (ER) | payer SELFPAY ==
[2017-11-15] MEDS ORDERED: NORMAL SALINE 1000 ML 1,000 ML IV ONE (08:26)
[2017-11-15] MEDS ORDERED: DIPHENHYDRAMINE HCL 50 MG/ML VIAL IV ONE (08:26)
[2017-11-15] MEDS ORDERED: PROCHLORPERAZINE EDISYLATE INJ 10 MG/2 ML VIAL IV ONE (08:26)
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
[2017-11-15 09:19] LABS: ABSOLUTE BASOPHILS # (AUTO) 0.1 10^3/uL (0.0-0.2); ABSOLUTE EOSINOPHILS # (AUTO) 0.2 10^3/uL (0.0-0.6); ABSOLUTE LYMPHOCYTES (AUTO) 2.8 10^3/uL (0.5-4.7); ABSOLUTE MONOCYTES (AUTO) 0.5 10^3/uL (0.1-1.4); ABSOLUTE NEUT (AUTO) 4.4 10^3/uL (1.7-8.2); EOSINOPHILS % (AUTO) 2.9 % (0-6); HEMATOCRIT 39.6 % (37.9-51.0); HEMOGLOBIN 13.8 g/dL (13.5-17.0); LYMPHOCYTES % (AUTO) 34.5 % (13-45); MEAN CORPUSCULAR HEMOGLOBIN 31.1 pg (27.0-33.4); MEAN CORPUSCULAR HGB CONC 34.8 g/dL (32.0-36.0); MEAN CORPUSCULAR VOLUME 89 fl (80-97); MONOCYTES % (AUTO) 6.5 % (3-13); PLATELET COUNT 292 10^3/uL (150-450); RED BLOOD COUNT 4.43 10^6/uL (4.35-5.55); RED CELL DISTRIBUTION WIDTH 12.9 % (11.5-14.0); SEGMENTED NEUTROPHILS % (AUTO) 55.1 % (42-78); TOTAL CELLS COUNTED % (AUTO) 100 %; WHITE BLOOD COUNT 8.1 10^3/uL (4.0-10.5)
[2017-11-15] MEDS ORDERED: FENTANYL CITRATE INJ/PF 100 MCG/2 ML AMPUL IV ONE ×2 (09:34→11:38)
[2017-11-15 09:38] LABS: ANION GAP 12 (5-19); BLOOD UREA NITROGEN 12 mg/dL (7-20); CALCIUM 9.1 mg/dL (8.4-10.2); CARBON DIOXIDE 30 mmol/L (22-30); CHLORIDE 106 mmol/L (98-107); GLUCOSE 85 mg/dL (75-110); POTASSIUM 3.9 mmol/L (3.6-5.0); SODIUM 147.8 mmol/L (137-145)
[2017-11-15 11:16] LABS: APPEARANCE,URINE CLEAR; BILIRUBIN,URINE NEGATIVE (NEGATIVE); COLOR,URINE YELLOW; GLUCOSE, URINE NEGATIVE (NEGATIVE); KETONES,URINE NEGATIVE (NEGATIVE); LEUKOCYTE ESTERASE,URINE NEGATIVE (NEGATIVE); NITRITE,URINE NEGATIVE (NEGATIVE); PROTEIN,URINE NEGATIVE (NEGATIVE); URINE SPECIFIC GRAVITY 1.016; UROBILINOGEN,URINE NEGATIVE mg/dL (<2.0)
[2017-11-15 11:33] LABS: URINE AMPHETAMINES SCREEN NEGATIVE; URINE BARBITURATES SCREEN NEGATIVE; URINE BENZODIAZEPINES SCREEN UNCONFIRMED POSITIVE; URINE COCAINE SCREEN NEGATIVE; URINE MARIJUANA (THC) SCREEN NEGATIVE; URINE METHADONE SCREEN NEGATIVE; URINE PHENCYCLIDINE SCREEN NEGATIVE
[2017-11-15] MEDS ORDERED: ACYCLOVIR SODIUM INJ/PF 500 MG/10 ML SDV IV ONE (11:39)
--- NOTE | 2017-11-15 13:46 | ER Document Report ---
ED General - General Chief Complaint: Headache >24 hrs old Stated Complaint: HEADACHE Time Seen by Provider: 11/15/17 08:23 Mode of Arrival: Ambulatory Notes: Patient is complaining of a severe headache. Says it began about 4 days ago, either Sunday afternoon or Sunday morning. He was seen here with a headache and some fever and had a lumbar puncture performed. The results were all normal. He came back on Sunday for a revisit because of the continuing pain. He was told to take Tylenol and Motrin and given prescription for Valium to take at bedtime and Phenergan to take as needed for nausea. Patient says he has pain in the back of his head and neck as well as pain in his back. Patient noted a rash of his upper left back and posterior shoulder down to about the left elbow which she has had for a couple of days. He says it was very sensitive before that rash erupted, but not particularly painful and does not itch. Patient has a history of migraine headaches and says this headache is worse than he gets with his migraine headaches. He has been nauseated and did vomit last night. Had some fever until yesterday, but the fever "broke" yesterday. Has not had any sinus congestion or cough or cold or chest congestion. Patient has had his tonsils removed. History of kidney stones. Had chickenpox as a child. No exposures to anyone with infectious diseases. Patient is homosexual male, but is HIV negative. TRAVEL OUTSIDE OF THE [place] IN LAST 30 DAYS: No - Related Data Allergies/Adverse Reactions: ketorolac [From Toradol] Allergy (Verified 11/12/17 11:40) ondansetron HCl [From Zofran] Allergy (Verified 11/12/17 11:40) Past Medical History - General Information source: Patient - Social History Smoking Status: Current Every Day Smoker Family History: Reviewed & Not Pertinent Patient has suicidal ideation: No Patient has homicidal ideation: No - Past Medical History Cardiac Medical History: Reports: Hx Hypertension, Hx Heart Murmur Neurological Medical History: Reports: Hx Migraine Renal/ Medical History: Reports: Hx Kidney Stones Psychiatric Medical History: Reports: Hx Anxiety, Hx Depression - Situational Past Surgical History: Reports: Hx Kidney (Renal Surgery) - stent, Hx Tonsillectomy - Immunizations Immunizations up to date: Yes Hx Diphtheria, Pertussis, Tetanus Vaccination: Yes Review of Systems - Review of Systems Notes: REVIEW OF SYSTEMS: CONSTITUTIONAL : See HPI. EENT: Denies eye, ear, nose or mouth or throat pain or other symptoms. CARDIOVASCULAR: Denies chest pain. RESPIRATORY: Denies cough, chest congestion, or shortness of breath. GASTROINTESTINAL: Denies abdominal pain or nausea, vomiting, or diarrhea. GENITOURINARY: Denies difficulty or painful urinating, urinary frequency, blood in urine. MUSCULOSKELETAL: Has both back and neck pain. Denies joint pain or swelling. SKIN: Rash on upper left back/shoulder region down to left elbow rash or skin lesions. NEUROLOGICAL: Denies LOC or altered mental status. Has a severe headache. Denies sensory loss or motor deficits. ALL OTHER SYSTEMS REVIEWED AND NEGATIVE. Physical Exam - Vital signs Vitals: Temp Pulse Resp BP Pulse Ox 98.4 F 98 18 132/84 H 100 11/15/17 06:40 11/15/17 06:40 11/15/17 06:40 11/15/17 06:40 11/15/17 06:40 Interpretation: Normal - Notes Notes: PHYSICAL EXAMINATION: GENERAL: Well-appearing, in no acute distress. HEAD: Atraumatic, normocephalic. EYES: Pupils equal round and reactive to light, extraocular movements intact. ENT: oropharynx clear without exudates. Moist mucous membranes. NECK: Normal range of motion, supple. LUNGS: Breath sounds clear and equal bilaterally. HEART: Regular rate and rhythm without murmurs. ABDOMEN: Soft, nontender. No guarding or rebound. No masses. BACK: No tenderness throughout entire back. EXTREMITIES: Normal range of motion without pain. NEUROLOGICAL: Normal speech, normal gait. Normal sensory, motor, and reflex exams. Awake, alert, and oriented x3. Cranial nerves normal. PSYCH: Normal mood, normal affect. SKIN: Warm, dry, erythematous eruption of the upper left back, left neck and down to the left elbow, mostly discrete erythematous lesions. I cannot tell for certain whether there are vesicles present, but these lesions are consistent with H zoster. There exclusively on the left side of the patient's neck and upper shoulder to the left elbow and nowhere else on his body Course - Vital Signs Vital signs: Temp Pulse Resp BP Pulse Ox 98.4 F 63 18 132/84 H 100 11/15/17 06:40 11/15/17 10:35 11/15/17 10:35 11/15/17 06:40 11/15/17 10:35 - Laboratory Result Diagrams: 11/15/17 09:09 11/15/17 09:09 Laboratory results interpreted by me: 11/15/17 09:09 Sodium 147.8 H Discharge - Discharge Clinical Impression: Herpes zoster, Headache Condition: Stable Disposition: HOME, SELF-CARE Additional Instructions: Shingles You have shingles. Shingles is caused by the chicken pox virus, The virus has been surviving dormant in a nerve cell since you had chicken pox years ago. The virus has spread down a nerve root to reach the skin. Typically, an band-like area of pain and skin sensitivity develops, then small blisters erupt in the area. Shingles lasts two or three weeks, but sometimes leaves persistent pain. You are contagious -- you can give children chicken pox. But you can't give anyone shingles. Antiviral medicines (such as acyclovir or famciclovir) can help, but the rash usually worsens for about a week. Pain medication is often given if the area hurts. Antihistamines such as Benadryl may be necessary for itching if it does not respond to soda baths and calamine lotion. Sometimes cortisone medicine or nerve-block shots are necessary if pain is severe. If the area remains severely painful as the sores heal, or if you suspect an infection developing in the sores, see your doctor. HEADACHE: The physician does not feel that the headache you are experiencing has a serious underlying cause. Most headaches are due to emotional stress, with resultant muscle tension (tension headache). Occasionally, headaches are secondary to changes in the blood vessels of the scalp (vascular headache and migraine headache). Sometimes, a headache is the first symptom of another developing illness, such as a viral infection. You have no evidence of stroke, bleeding, meningitis, or other serious cause of your headache. The treatment of headaches varies with the severity and cause of the pain. Not all headaches need pain shots. In fact, there is evidence that using narcotics for headaches may make them worse in the long run. The physician will determine the therapy that's in your best interest. If you develop a fever, if the headache is different from any you've previously experienced, or if the headache progressively worsens, then call your physician at once or go to the emergency room. ORAL NARCOTIC MEDICATION: You have been given a prescription for pain control. This medication is a narcotic. It's best taken with food, as nausea can result if taken on an empty stomach. Don't operate machinery or drive within six hours of taking this medication. Do not combine this medicine with alcohol, or with any medication which can cause sedation (such as cold tablets or sleeping pills) unless you get permission from the physician. Narcotics tend to cause constipation. If possible, drink plenty of fluids and eat a diet high in fiber and fruits. FOLLOW-UP CARE: If you have been referred to a physician for follow-up care, call the physician s office for an appointment as you were instructed or within the next two days. If you experience worsening or a significant change in your symptoms, notify the physician immediately or return to the Emergency Department at any time for re-evaluation. You have been given a prescription for Valtrex to be taken 3 times a day until finished. It is very important that she take it until it is completely finished. Prescriptions: Oxycodone HCl/Acetaminophen [Percocet 5-325 mg Tablet] 1 - 2 tab PO Q4H PRN #25 tablet PRN Reason: Valacyclovir HCl [Valtrex] 1,000 mg PO TID #20 tablet Forms: Return to Work Referrals: [facility] [Provider Group] - Follow up as needed
[2017-11-15 14:43] VITALS: BP 130/80
== END 2017-11-15 14:43 | disposition home or self-care (01) ==
LOC: ER 06:24
DX: B02.9 Zoster without complications (principal); R51 Headache; R50.9 Fever, unspecified; R21 Rash and other nonspecific skin eruption; M54.2 Cervicalgia; M54.9 Dorsalgia, unspecified; F17.200 Nicotine dependence, unspecified, uncomplicated; I10 Essential (primary) hypertension
CPT/HCPCS: 96376; 99283; 96361; 96375; 96365; 36415; 87040; 85025; 80048; 81001; 80307; J1200; J0133; J3010; J0780; J7030

== ENCOUNTER 2018-01-08 12:24 | Emergency (ER) | payer SELFPAY ==
[2018-01-08 13:06] VITALS: BP 111/60
[2018-01-08] MEDS ORDERED: IBUPROFEN 600 MG TABLET PO ONE (14:58)
[2018-01-08] MEDS ORDERED: ACETAMINOPHEN 325 MG TABLET PO ONE (14:58)
[2018-01-08 15:47] LABS: APPEARANCE,URINE CLOUDY; BILIRUBIN,URINE SMALL (NEGATIVE); COLOR,URINE YELLOW; GLUCOSE, URINE NEGATIVE (NEGATIVE); KETONES,URINE NEGATIVE (NEGATIVE); LEUKOCYTE ESTERASE,URINE SMALL (NEGATIVE); NITRITE,URINE NEGATIVE (NEGATIVE); PROTEIN,URINE 30 mg/dL (NEGATIVE)
--- NOTE | 2018-01-08 15:52 | RADIOLOGY REPORT (SQ) ---
EXAM DESCRIPTION: CHEST 2 VIEWS COMPLETED DATE/TIME: 01/08/2018 3:44 pm REASON FOR STUDY: CP COMPARISON: None. EXAM PARAMETERS: NUMBER OF VIEWS: two views TECHNIQUE: Digital Frontal and Lateral radiographic views of the chest acquired. RADIATION DOSE: NA LIMITATIONS: none FINDINGS: LUNGS AND PLEURA: No opacities, masses or pneumothorax. No pleural effusion. MEDIASTINUM AND HILAR STRUCTURES: No masses or contour abnormalities. HEART AND VASCULAR STRUCTURES: Heart normal size. No evidence for failure. BONES: No acute findings. HARDWARE: None in the chest. OTHER: No other significant finding. IMPRESSION: NO ACUTE RADIOGRAPHIC FINDING IN THE CHEST. TECHNICAL DOCUMENTATION: JOB ID: [id number] [employer]- All Rights Reserved Reading location - IP/workstation name: [email or web address]
[2018-01-08 16:02] LABS: URINE AMPHETAMINES SCREEN NEGATIVE; URINE BARBITURATES SCREEN NEGATIVE; URINE BENZODIAZEPINES SCREEN UNCONFIRMED POSITIVE; URINE COCAINE SCREEN NEGATIVE; URINE MARIJUANA (THC) SCREEN NEGATIVE; URINE METHADONE SCREEN NEGATIVE; URINE PHENCYCLIDINE SCREEN NEGATIVE
--- NOTE | 2018-01-08 18:26 | EKG REPORT ---
SEVERITY:- NORMAL ECG - SINUS RHYTHM : Confirmed by: Pete Villarreal MD 08-Jan-2018 18:26:16
--- NOTE | 2018-01-08 20:35 | ER Document Report ---
ED General - General Chief Complaint: Inability to Void Stated Complaint: CHEST PAIN Time Seen by Provider: 01/08/18 14:48 TRAVEL OUTSIDE OF THE [place] IN LAST 30 DAYS: No - HPI Patient complains to provider of: Chest pain left flank pain and inability to void hematuria Notes: Patient comes in with multiple complaints chest pain palpitations inability to void flank pain hematuria. Patient states history of kidney stones in the past patient states he took Valium and Percocet prior to his arrival here to the ER these are left over from a previous prescription that he received. Patient denies any fevers chills. Patient resting comfortably upon my evaluation patient does seem to be anxious. Patient also complaining of headaches. Denies any recent trauma denies any recent antibiotics. - Related Data Allergies/Adverse Reactions: ketorolac [From Toradol] Allergy (Verified 01/08/18 14:49) ondansetron HCl [From Zofran] Allergy (Verified 01/08/18 14:49) Past Medical History - Social History Smoking Status: Current Every Day Smoker Chew tobacco use (# tins/day): No Frequency of alcohol use: Occasional Drug Abuse: None Family History: Reviewed & Not Pertinent Patient has suicidal ideation: No Patient has homicidal ideation: No - Past Medical History Cardiac Medical History: Reports: Hx Hypertension, Hx Heart Murmur Neurological Medical History: Reports: Hx Migraine Renal/ Medical History: Reports: Hx Kidney Stones. Denies: Hx Peritoneal Dialysis Psychiatric Medical History: Reports: Hx Anxiety, Hx Depression - Situational Past Surgical History: Reports: Hx Kidney (Renal Surgery) - stent, Hx Tonsillectomy - Immunizations Immunizations up to date: Yes Hx Diphtheria, Pertussis, Tetanus Vaccination: Yes Review of Systems - Review of Systems Constitutional: Other - Mental complaint chest pain palpitations headache left flank pain and inability to urinate EENT: No symptoms reported Cardiovascular: No symptoms reported Respiratory: No symptoms reported Gastrointestinal: No symptoms reported Genitourinary: No symptoms reported Male Genitourinary: No symptoms reported Musculoskeletal: No symptoms reported Skin: No symptoms reported Hematologic/Lymphatic: No symptoms reported Neurological/Psychological: No symptoms reported Physical Exam - Vital signs Vitals: Temp Pulse Resp BP Pulse Ox 98.1 F 86 18 111/60 100 01/08/18 13:04 01/08/18 13:04 01/08/18 13:04 01/08/18 13:04 01/08/18 13:04 Interpretation: Normal - General General appearance: Appears well, Alert - HEENT Head: Normocephalic, Atraumatic Eyes: Normal Pupils: PERRL - Respiratory Respiratory status: No respiratory distress Chest status: Nontender Breath sounds: Normal Chest palpation: Normal - Cardiovascular Rhythm: Regular Heart sounds: Normal auscultation Murmur: No - Abdominal Inspection: Normal Distension: No distension Bowel sounds: Normal Tenderness: Nontender Organomegaly: No organomegaly - Genitourinary Notes: Bedside ultrasound was performed showing a mild amount of urine within the bladder the bladder was not palpable. Bedside ultrasound of the left and right kidneys did not show any signs of hydronephrosis - Back Back: Normal, Nontender - Extremities General upper extremity: Normal inspection, Nontender, Normal color, Normal ROM , Normal temperature General lower extremity: Normal inspection, Nontender, Normal color, Normal ROM , Normal temperature, Normal weight bearing. No: Leticia's sign - Neurological Neuro grossly intact: Yes Cognition: Normal Orientation: AAOx4 [place] Coma Scale Eye Opening: Spontaneous [place] Coma Scale Verbal: Oriented [place] Coma Scale Motor: Obeys Commands [place] Coma Scale Total: 15 Speech: Normal Motor strength normal: LUE, RUE, LLE, RLE Sensory: Normal - Psychological Associated symptoms: Normal affect, Normal mood - Skin Skin Temperature: Warm Skin Moisture: Dry Skin Color: Normal Course - Re-evaluation Re-evalutation: 01/08/18 20:37 Evaluate patient patient asking for pain medications by the patient in the [place] area that we only lab work was ordered along with CAT scan as an patient's previous history does show a history of kidney stones on the left side. Patient is asking for an IV however do not feel is warranted at this time as the patient otherwise looks to be no obvious distress. Patient while in our meeting continued to ask for pain medications and did reiterate with the patient through to staff that he will only receive Tylenol and Motrin in the triage. Patient then stated to staff that he cannot take Motrin. ER staff explained to the patient treatment course laboratory studies along with a CAT scan patient declined any further evaluation left AGAINST MEDICAL ADVICE I did not reevaluate the patient prior to leaving as I was not available patient left prior to my reevaluation for AGAINST MEDICAL ADVICE - Vital Signs Vital signs: Temp Pulse Resp BP Pulse Ox 98.1 F 86 18 111/60 100 01/08/18 13:04 01/08/18 13:04 01/08/18 13:04 01/08/18 13:04 01/08/18 13:04 - Laboratory Laboratory results interpreted by me: 01/08/18 15:03 Urine Protein 30 H Urine Blood LARGE H Urine Bilirubin SMALL H Urine Urobilinogen 2.0 H Ur Leukocyte Esterase SMALL H Discharge - Discharge Disposition: AGAINST MEDICAL ADVICE
== END 2018-01-08 15:46 | disposition left against medical advice (07) ==
LOC: ER 12:24
DX: R07.9 Chest pain, unspecified (principal); R39.9 Unspecified symptoms and signs involving the genitourinary system; R31.9 Hematuria, unspecified; R10.9 Unspecified abdominal pain; Z53.20 Procedure and treatment not carried out because of patient's decision for unspecified reasons; R00.2 Palpitations; F17.200 Nicotine dependence, unspecified, uncomplicated; R51 Headache; I10 Essential (primary) hypertension; Z87.442 Personal history of urinary calculi; Z88.8 Allergy status to other drugs, medicaments and biological substances
CPT/HCPCS: 36415; 71046; 80307; 81001; 93005; 93010; 99284

== ENCOUNTER 2018-04-09 10:38 | Emergency (ER) | payer SELFPAY ==
--- NOTE | 2018-04-09 11:10 | ER Document Report ---
ED Medical Screen (RME) - General Chief Complaint: Feet Swelling Stated Complaint: SWOLLEN FEET/PAIN IN JOINTS AND LOWER BACK Time Seen by Provider: 04/09/18 11:04 Notes: Patient is a 37-year-old male that presents to the emergency department for chief complaint of bilateral lower extremity swelling, erythema, first noticed this about for 5 days ago seemingly getting worse since then. Has had associated pain, and fever ROS: Other than noted above, the 12 point review of systems was reviewed with the patient and were negative, all pertinent findings are included in the HPI. PHYSICAL EXAMINATION: Vital signs reviewed. GENERAL: Well-appearing, well-nourished and in no acute distress. HEAD: Atraumatic, normocephalic. EYES: Pupils equal round extraocular movements intact, conjunctiva are normal. ENT: Nares patent NECK: Normal range of motion CV: Heart regular rate and rhythm LUNGS: No respiratory distress Musculoskeletal: Normal range of motion, bilateral lower extremity pedal edema, with associated erythema, left worse than right. NEUROLOGICAL: Normal speech PSYCH: Normal mood, normal affect. MDM: Patient seen and examined for rapid initial assessment. Vital signs reviewed. A comprehensive ED assessment and evaluation of the patient, analysis of test results and completion of the medical decision making process will be conducted by additional ED providers. *Note is created using voice recognition software and may contain spelling, syntax or grammatical errors. TRAVEL OUTSIDE OF THE [place] IN LAST 30 DAYS: No - Related Data Allergies/Adverse Reactions: ketorolac [From Toradol] Allergy (Verified 04/09/18 11:06) ondansetron HCl [From Zofran] Allergy (Verified 04/09/18 11:06) Past Medical History - Social History Frequency of alcohol use: None Drug Abuse: None - Past Medical History Cardiac Medical History: Reports: Hx Hypertension, Hx Heart Murmur Neurological Medical History: Reports: Hx Migraine Renal/ Medical History: Reports: Hx Kidney Stones. Denies: Hx Peritoneal Dialysis Psychiatric Medical History: Reports: Hx Anxiety, Hx Depression - Situational Past Surgical History: Reports: Hx Kidney (Renal Surgery) - stent( removed), Hx Tonsillectomy - Immunizations Immunizations up to date: Yes Hx Diphtheria, Pertussis, Tetanus Vaccination: Yes Physical Exam - Vital signs Vitals: Temp Pulse Resp BP Pulse Ox 98.4 F 109 H 16 141/82 H 96 04/09/18 10:51 04/09/18 10:51 04/09/18 10:51 04/09/18 10:51 04/09/18 10:51 Course - Vital Signs Vital signs: Temp Pulse Resp BP Pulse Ox 98.4 F 109 H 16 141/82 H 96 04/09/18 10:51 04/09/18 10:51 04/09/18 10:51 04/09/18 10:51 04/09/18 10:51
--- NOTE | 2018-04-09 11:44 | RADIOLOGY REPORT (SQ) ---
EXAM DESCRIPTION: CHEST 2 VIEWS COMPLETED DATE/TIME: 04/09/2018 11:34 am REASON FOR STUDY: tachycardia, le edema COMPARISON: Two-view chest 01/08/2018 EXAM PARAMETERS: NUMBER OF VIEWS: two views TECHNIQUE: Digital Frontal and Lateral radiographic views of the chest acquired. RADIATION DOSE: NA LIMITATIONS: none FINDINGS: LUNGS AND PLEURA: No opacities, masses or pneumothorax. No pleural effusion. MEDIASTINUM AND HILAR STRUCTURES: No masses or contour abnormalities. HEART AND VASCULAR STRUCTURES: Heart normal size. No evidence for failure. BONES: No acute findings. HARDWARE: None in the chest. OTHER: No other significant finding. IMPRESSION: NO ACUTE RADIOGRAPHIC FINDING IN THE CHEST. TECHNICAL DOCUMENTATION: JOB ID: [id number] [employer]- All Rights Reserved Reading location - IP/workstation name: [email or web address]
[2018-04-09 12:24] LABS: ABSOLUTE EOSINOPHILS # (AUTO) 0.2 10^3/uL (0.0-0.6); ABSOLUTE LYMPHOCYTES (AUTO) 1.1 10^3/uL (0.5-4.7); ABSOLUTE MONOCYTES (AUTO) 0.4 10^3/uL (0.1-1.4); ABSOLUTE NEUT (AUTO) 6.1 10^3/uL (1.7-8.2); BASOPHILS % (AUTO) 0.6 % (0-2); EOSINOPHILS % (AUTO) 2.6 % (0-6); HEMATOCRIT 33.5 % (37.9-51.0); HEMOGLOBIN 11.4 g/dL (13.5-17.0); LYMPHOCYTES % (AUTO) 14.1 % (13-45); MEAN CORPUSCULAR HEMOGLOBIN 30.2 pg (27.0-33.4); MEAN CORPUSCULAR HGB CONC 34.1 g/dL (32.0-36.0); MEAN CORPUSCULAR VOLUME 89 fl (80-97); MONOCYTES % (AUTO) 5.4 % (3-13); PLATELET COUNT 252 10^3/uL (150-450); RED BLOOD COUNT 3.78 10^6/uL (4.35-5.55); RED CELL DISTRIBUTION WIDTH 12.7 % (11.5-14.0); SEGMENTED NEUTROPHILS % (AUTO) 77.3 % (42-78); TOTAL CELLS COUNTED % (AUTO) 100 %; WHITE BLOOD COUNT 7.9 10^3/uL (4.0-10.5)
[2018-04-09 12:37] LABS: ALANINE AMINOTRANSFERASE 36 U/L (21-72); ALBUMIN 3.5 g/dL (3.5-5.0); ALKALINE PHOSPHATASE 120 U/L (38-126); ANION GAP 9 (5-19); ASPARTATE AMINO TRANSFERASE 44 U/L (17-59); BILIRUBIN,DIRECT 0.3 mg/dL (0.0-0.4); BILIRUBIN,TOTAL 0.4 mg/dL (0.2-1.3); BLOOD UREA NITROGEN 16 mg/dL (7-20); CALCIUM 9.5 mg/dL (8.4-10.2); CARBON DIOXIDE 30 mmol/L (22-30); CHLORIDE 104 mmol/L (98-107); CREATINE KINASE 447 U/L (55-170); GLUCOSE 129 mg/dL (75-110); POTASSIUM 4.3 mmol/L (3.6-5.0); SODIUM 142.9 mmol/L (137-145); TOTAL PROTEIN 6.5 g/dL (6.3-8.2)
--- NOTE | 2018-04-09 12:48 | ER Document Report ---
ED Extremity Problem, Lower - General Chief Complaint: Feet Swelling Stated Complaint: SWOLLEN FEET/PAIN IN JOINTS AND LOWER BACK Time Seen by Provider: 04/09/18 11:04 Notes: This is a 37-year-old male to the emergency department complaining of swelling and redness to his bilateral feet. Patient states that this been going on for quite some time. Took some of his mother's Lasix. Patient appears quite somnolent on arrival. Denies any use of alcohol, drugs. States that he does smoke about 2 packs of cigarettes a day. Denies any chest pain, shortness of breath. Does state that he has a "heart murmur". Does have a chronic cough. No prior history of congestive heart failure. No other issues at this time. TRAVEL OUTSIDE OF THE [place] IN LAST 30 DAYS: No - HPI Patient complains to provider of: Swelling Location: Foot Occurred: Last week Where: Home - Related Data Allergies/Adverse Reactions: ketorolac [From Toradol] Allergy (Verified 04/09/18 11:06) ondansetron HCl [From Zofran] Allergy (Verified 04/09/18 11:06) Past Medical History - General Information source: Patient - Social History Smoking Status: Current Every Day Smoker Cigarette use (# per day): Yes Frequency of alcohol use: None Drug Abuse: None Lives with: Family Family History: Reviewed & Not Pertinent Patient has suicidal ideation: No Patient has homicidal ideation: No - Past Medical History Cardiac Medical History: Reports: Hx Hypertension, Hx Heart Murmur Neurological Medical History: Reports: Hx Migraine Renal/ Medical History: Reports: Hx Kidney Stones. Denies: Hx Peritoneal Dialysis Psychiatric Medical History: Reports: Hx Anxiety, Hx Depression - Situational Past Surgical History: Reports: Hx Kidney (Renal Surgery) - stent( removed), Hx Tonsillectomy - Immunizations Immunizations up to date: Yes Hx Diphtheria, Pertussis, Tetanus Vaccination: Yes Review of Systems - Review of Systems Notes: Constitutional: denies: Chills, Diaphoresis, Fever, Malaise, Weakness EENT: denies: Eye discharge, Blurred vision, Tearing, Double vision, Nose congestion, Nose discharge, Throat swelling, Mouth pain Cardiovascular: denies: Palpitations, Heart racing, Orthopnea, Dyspnea, Chest pain Respiratory: denies: Cough, Hurts to breathe, Wheezing, Shortness of breath Gastrointestinal: denies: Abdominal pain, Diarrhea, Nausea, Vomiting, Black stools, bright red blood in stool Genitourinary: denies: Burning, Dysuria, Discharge, Frequency, Flank pain, Hematuria Musculoskeletal: denies: Muscle pain, Muscle stiffness, back pain. Does complain of diffuse joint pain and swelling of his bilateral feet and ankles Hematologic/Lymphatic: denies: Anemia, Easy bleeding, Easy bruising, Blood clots Neurological/Psychological: denies: Confusion, Dementia, Depression, Loss of consciousness Skin: No lesions, no masses, no skin breakdown, no abscesses and redness reported to the bilateral feet and ankle areas. Physical Exam - Vital signs Vitals: Temp Pulse Resp BP Pulse Ox 98.4 F 109 H 16 141/82 H 96 04/09/18 10:51 04/09/18 10:51 04/09/18 10:51 04/09/18 10:51 04/09/18 10:51 Interpretation: Normal - General General appearance: Appears well, Alert, Lethargic In distress: None - HEENT Head: Normocephalic, Atraumatic Eyes: Normal Pupils: PERRL - Respiratory Respiratory status: No respiratory distress Chest status: Nontender Breath sounds: Normal Chest palpation: Normal - Cardiovascular Rhythm: Regular Heart sounds: Normal auscultation Murmur: No - Abdominal Inspection: Normal Distension: No distension Bowel sounds: Normal Tenderness: Nontender Organomegaly: No organomegaly - Back Back: Normal, Nontender - Extremities General upper extremity: Normal inspection, Nontender, Normal color, Normal ROM , Normal temperature General lower extremity: Normal inspection, Nontender, Edema, Normal color, Normal ROM, Normal temperature, Normal weight bearing, Other - he does have some redness noted to the bilateral feet left greater than the right. Pulses are present bilateral dorsalis pedis and posterior tibialis.. No: Leticia's sign - Neurological Neuro grossly intact: Yes Cognition: Normal Orientation: AAOx4 Bird In Hand Coma Scale Eye Opening: Spontaneous Bird In Hand Coma Scale Verbal: Oriented Porfirio Coma Scale Motor: Obeys Commands Bird In Hand Coma Scale Total: 15 Speech: Normal Motor strength normal: LUE, RUE, LLE, RLE Sensory: Normal - Psychological Associated symptoms: Normal affect, Normal mood - Skin Skin Temperature: Warm Skin Moisture: Dry Skin Color: Normal Course - Re-evaluation Re-evalutation: 04/09/18 15:12 Other than the mild redness noted to his bilateral feet with small amount of trace edema to the bilateral feet and this somnolence patient appears otherwise unremarkable. Labs are fairly unremarkable. Ultrasound negative for DVT. Urine drug screen is consistent consistent with polysubstance abuse. This would coincide with what I am seeing on physical exam as well. At this time I will place him on some Keflex as this could represent a cellulitis in the making. Will give follow-up information and advised to return for worsening symptoms or concerns. This time I do not feel the patient is suffering from congestive heart failure as his chest x-ray and BNP are within normal limits. Troponin is negative. His EKG is unremarkable. He is not tachycardic nor hypoxic so unlikely this represents a PE. 04/09/18 15:16 Laboratory 04/09/18 04/09/18 04/09/18 11:40 11:40 11:40 WBC 7.9 RBC 3.78 L Hgb 11.4 L Hct 33.5 L MCV 89 MCH 30.2 MCHC 34.1 RDW 12.7 Plt Count 252 Seg Neutrophils % 77.3 Lymphocytes % 14.1 Monocytes % 5.4 Eosinophils % 2.6 Basophils % 0.6 Absolute Neutrophils 6.1 Absolute Lymphocytes 1.1 Absolute Monocytes 0.4 Absolute Eosinophils 0.2 Absolute Basophils 0.0 Sodium 142.9 Potassium 4.3 Chloride 104 Carbon Dioxide 30 Anion Gap 9 BUN 16 Creatinine 0.86 Est GFR ( Amer) > 60 Est GFR (Non-Af Amer) > 60 Glucose 129 H Calcium 9.5 Total Bilirubin 0.4 Direct Bilirubin 0.3 Neonat Total Bilirubin Not Reportable Neonat Direct Bilirubin Not Reportable Neonat Indirect Bili Not Reportable AST 44 ALT 36 Alkaline Phosphatase 120 Ammonia Creatine Kinase 447 H Troponin I < 0.012 NT-Pro-B Natriuret Pep 60 Total Protein 6.5 Albumin 3.5 Urine Color Urine Appearance Urine pH Ur Specific [place] Urine Protein Urine Glucose (UA) Urine Ketones Urine Blood Urine Nitrite Urine Bilirubin Urine Urobilinogen Ur Leukocyte Esterase Urine WBC (Auto) Urine RBC (Auto) Urine Mucus (Auto) Urine Ascorbic Acid Urine Opiates Screen Urine Methadone Screen Ur Barbiturates Screen Ur Phencyclidine Scrn Ur Amphetamines Screen U Benzodiazepines Scrn Urine Cocaine Screen U Marijuana (THC) Screen 04/09/18 04/09/18 04/09/18 13:14 14:13 14:13 WBC RBC Hgb Hct MCV MCH MCHC RDW Plt Count Seg Neutrophils % Lymphocytes % Monocytes % Eosinophils % Basophils % Absolute Neutrophils Absolute Lymphocytes Absolute Monocytes Absolute Eosinophils Absolute Basophils Sodium Potassium Chloride Carbon Dioxide Anion Gap BUN Creatinine Est GFR ( Amer) Est GFR (Non-Af Amer) Glucose Calcium Total Bilirubin Direct Bilirubin Neonat Total Bilirubin Neonat Direct Bilirubin Neonat Indirect Bili AST ALT Alkaline Phosphatase Ammonia 9.3 Creatine Kinase Troponin I NT-Pro-B Natriuret Pep Total Protein Albumin Urine Color YELLOW Urine Appearance SLIGHTLY-CLOUDY Urine pH 5.0 Ur Specific [place] 1.025 Urine Protein NEGATIVE Urine Glucose (UA) NEGATIVE Urine Ketones NEGATIVE Urine Blood NEGATIVE Urine Nitrite NEGATIVE Urine Bilirubin NEGATIVE Urine Urobilinogen NEGATIVE Ur Leukocyte Esterase NEGATIVE Urine WBC (Auto) 1 Urine RBC (Auto) 0 Urine Mucus (Auto) OCC Urine Ascorbic Acid NEGATIVE Urine Opiates Screen UNCONFIRMED POSITIVE Urine Methadone Screen NEGATIVE Ur Barbiturates Screen NEGATIVE Ur Phencyclidine Scrn NEGATIVE Ur Amphetamines Screen UNCONFIRMED POSITIVE U Benzodiazepines Scrn UNCONFIRMED POSITIVE Urine Cocaine Screen NEGATIVE U Marijuana (THC) Screen NEGATIVE Chest X-Ray 04/09/18 11:10 IMPRESSION: NO ACUTE RADIOGRAPHIC FINDING IN THE CHEST. Venous Doppler Study 04/09/18 11:11 IMPRESSION: NO EVIDENCE DVT OR SVT IN EITHER LEG. - Vital Signs Vital signs: Temp Pulse Resp BP Pulse Ox 98.4 F 109 H 15 107/65 98 04/09/18 10:51 04/09/18 10:51 04/09/18 15:00 04/09/18 15:00 04/09/18 15:00 - Laboratory Result Diagrams: 04/09/18 11:40 04/09/18 11:40 Laboratory results interpreted by me: 04/09/18 04/09/18 11:40 11:40 RBC 3.78 L Hgb 11.4 L Hct 33.5 L Glucose 129 H Creatine Kinase 447 H - EKG Interpretation by Nm EKG shows normal: Sinus rhythm, [place], Intervals, QRS Complexes, ST-T Waves Discharge - Discharge Clinical Impression: Pedal edema, Cellulitis of left foot Condition: Good Disposition: HOME, SELF-CARE Instructions: Edema, Peripheral ([facility]), Cellulitis ([facility]) Additional Instructions: In the event that the redness and swelling is getting worse please return for repeat evaluation. Take all of the medications as prescribed. Follow-up with a regular doctor soon as possible for repeat evaluation and treatment. Prescriptions: Cephalexin Monohydrate [Keflex 500 mg Capsule] 500 mg PO Q6H 10 Days #40 capsule Referrals: [facility] [Provider Group] - Follow up in 3-5 days
[2018-04-09 12:49] LABS: NT PRO BNP 60 pg/mL (<125)
[2018-04-09 12:50] LABS: TROPONIN I < 0.012 ng/mL
--- NOTE | 2018-04-09 14:04 | RADIOLOGY REPORT (SQ) ---
EXAM DESCRIPTION: VENOUS BILATERAL LOWER COMPLETED DATE/TIME: 04/09/2018 1:46 pm REASON FOR STUDY: bilateral le edema, erythema COMPARISON: CT abdomen pelvis 01/01/2017 TECHNIQUE: Dynamic and static nicole scale and color images acquired of both lower extremity venous sy stems. Selected spectral images acquired with additional compression and augmentation maneuvers. Imag es stored on PACS. LIMITATIONS: None. FINDINGS: RIGHT LEG COMMON FEMORAL AND FEMORAL: Normal phasicity, compression and augmentation. No visualized echogenic m aterial on nicole scale. No defects on color images. POPLITEAL: Normal compression and augmentation. No visualized echogenic material on nicole scale. No de fects on color images. POSTERIOR TIBIAL AND PERONEAL VEINS: Normal compression and augmentation. No visualized echogenic mat erial on nicole scale. No defects on color image. GSV AND SSV: Normal compression. No visualized echogenic material on nicole scale. No defects on color images. ANY DEEP VENOUS INSUFFICIENCY: Not evaluated. ANY EVIDENCE OF POPLITEAL CYST: No. OTHER: Small benign-appearing right inguinal lymph nodes LEFT LEG COMMON FEMORAL AND FEMORAL: Normal phasicity, compression and augmentation. No visualized echogenic m aterial on nicole scale. No defects on color images. POPLITEAL: Normal compression and augmentation. No visualized echogenic material on nicole scale. No de fects on color images. POSTERIOR TIBIAL AND PERONEAL VEINS: Normal compression and augmentation. No visualized echogenic mat erial on nicole scale. No defects on color images. GSV AND SSV: Normal compression. No visualized echogenic material on nicole scale. No defects on color images. ANY DEEP VENOUS INSUFFICIENCY: Not evaluated. ANY EVIDENCE POPLITEAL CYST: No. OTHER: Small benign-appearing left inguinal lymph nodes. IMPRESSION: NO EVIDENCE DVT OR SVT IN EITHER LEG. TECHNICAL DOCUMENTATION: JOB ID: [id number] [employer]- All Rights Reserved Reading location - IP/workstation name: [email or web address]
[2018-04-09 14:37] LABS: APPEARANCE,URINE SLIGHTLY-CLOUDY; BILIRUBIN,URINE NEGATIVE (NEGATIVE); COLOR,URINE YELLOW; GLUCOSE, URINE NEGATIVE (NEGATIVE); KETONES,URINE NEGATIVE (NEGATIVE); LEUKOCYTE ESTERASE,URINE NEGATIVE (NEGATIVE); NITRITE,URINE NEGATIVE (NEGATIVE); PROTEIN,URINE NEGATIVE (NEGATIVE); URINE SPECIFIC GRAVITY 1.025; UROBILINOGEN,URINE NEGATIVE mg/dL (<2.0)
[2018-04-09 14:52] LABS: URINE AMPHETAMINES SCREEN UNCONFIRMED POSITIVE; URINE BARBITURATES SCREEN NEGATIVE; URINE BENZODIAZEPINES SCREEN UNCONFIRMED POSITIVE; URINE COCAINE SCREEN NEGATIVE; URINE MARIJUANA (THC) SCREEN NEGATIVE; URINE METHADONE SCREEN NEGATIVE; URINE PHENCYCLIDINE SCREEN NEGATIVE
[2018-04-09] MEDS ORDERED: CEFTRIAXONE INJ 1000 MG VIAL IV ONE (15:14)
[2018-04-09] MEDS ORDERED: CEFTRIAXONE INJ 1000 MG VIAL IM ONE (15:24)
[2018-04-09] MEDS ORDERED: LIDOCAINE 1% INJ-PF (10 MG/ML) 30 ML SDV ONE (15:38)
[2018-04-09 15:46] VITALS: BP 107/70
--- NOTE | 2018-04-10 07:13 | EKG REPORT ---
SEVERITY:- NORMAL ECG - SINUS RHYTHM : Confirmed by: Obed Rollins 10-Apr-2018 07:12:22
== END 2018-04-09 16:00 | disposition home or self-care (01) ==
LOC: ER 10:38
DX: L03.116 Cellulitis of left lower limb (principal); R60.0 Localized edema; F17.210 Nicotine dependence, cigarettes, uncomplicated; R05 Cough; I10 Essential (primary) hypertension; Z88.8 Allergy status to other drugs, medicaments and biological substances
CPT/HCPCS: 93005; 99284; 96372; 36415; 82140; 82550; 85025; 80053; 81001; 84484; 80307; 83880; 93970; 71046; 93010; J3490; J0696

== ENCOUNTER 2018-05-28 09:07 | Emergency (ER) | payer SELFPAY ==
[2018-05-28] MEDS ORDERED: VANCOMYCIN HCL INJ 1000 MG VIAL IV ONE (09:42)
--- NOTE | 2018-05-28 09:50 | ER Document Report ---
ED General - General Chief Complaint: Abscess Stated Complaint: POSSIBLE ABSCESS Time Seen by Provider: 05/28/18 09:28 Mode of Arrival: Ambulatory Information source: Patient Notes: Patient is a 37-year-old male who presents to the emergency department with complaint of possible abscess to his neck. Patient reports a reddened hard area to his anterior neck that has been present for 3 days. He denies any drainage from the site. He reports feeling chills but no fevers. Patient denies any medical history. Patient reports that he uses heroin, last use was yesterday. TRAVEL OUTSIDE OF THE [place] IN LAST 30 DAYS: No - Related Data Allergies/Adverse Reactions: ketorolac [From Toradol] Allergy (Verified 04/09/18 11:06) ondansetron HCl [From Zofran] Allergy (Verified 04/09/18 11:06) Past Medical History - General Information source: Patient - Social History Smoking Status: Current Every Day Smoker Chew tobacco use (# tins/day): No Frequency of alcohol use: None Drug Abuse: None Family History: Reviewed & Not Pertinent Patient has suicidal ideation: No Patient has homicidal ideation: No - Past Medical History Cardiac Medical History: Reports: Hx Hypertension, Hx Heart Murmur Neurological Medical History: Reports: Hx Migraine Renal/ Medical History: Reports: Hx Kidney Stones. Denies: Hx Peritoneal Dialysis Psychiatric Medical History: Reports: Hx Anxiety, Hx Depression - Situational Past Surgical History: Reports: Hx Kidney (Renal Surgery) - stent( removed), Hx Tonsillectomy - Immunizations Immunizations up to date: Yes Hx Diphtheria, Pertussis, Tetanus Vaccination: Yes Review of Systems - Review of Systems Constitutional: Chills, Diaphoresis EENT: No symptoms reported Cardiovascular: No symptoms reported. denies: Chest pain, Palpitations, Dizziness Respiratory: No symptoms reported. denies: Hurts to breathe, Short of breath Gastrointestinal: No symptoms reported. denies: Nausea, Vomiting Genitourinary: No symptoms reported Hematologic/Lymphatic: Other - Redness anterior neck Physical Exam - Vital signs Vitals: Pulse Ox 100 05/28/18 09:10 - Notes Notes: PHYSICAL EXAMINATION: GENERAL: Diaphoretic, anxious. HEAD: Atraumatic, normocephalic. EYES: Pupils equal round and reactive to light, extraocular movements intact, sclera anicteric, conjunctiva are normal. ENT: Nares patent, oropharynx clear without exudates. Moist mucous membranes. Area of erythema and induration to anterior neck, no fluctuance. NECK: Normal range of motion, supple without lymphadenopathy LUNGS: Breath sounds clear to auscultation bilaterally and equal. No wheezes rales or rhonchi. HEART: S1-S2 auscultated with no murmur appreciated. ABDOMEN: Soft, nontender, nondistended abdomen. No guarding, no rebound. No masses appreciated. Musculoskeletal: Normal range of motion, no pitting or edema. No cyanosis. NEUROLOGICAL: Cranial nerves grossly intact. Normal speech, normal gait. Normal sensory, motor exams PSYCH: Normal mood, normal affect. SKIN: Diaphoretic, scattered track roy noted to patient's bilateral upper extremities. Course - Re-evaluation Re-evalutation: 05/28/18 09:48 After initial evaluation of the patient I called attending physician, Dr. Christopher to the bedside to evaluate the patient. Patient does admit to IV drug use, denies injecting into the area of concern. We will proceed with orders for CT s oft tissue neck and CT chest with contrast to evaluate for abscess versus mediastinitis. Will start IV antibiotics after labs and cultures are obtained. Patient was placed on the spool salvager and is tachycardic with a heart rate of 124, blood pressure 154/104. Patient's O2 saturations are 100% on room air. Patient is speaking in full and complete sentences and is swallowing without difficulty. 05/28/18 10:52 Patient remains tachycardic but heart rate is improving at 112 bpm. Nursing sta ff has obtained IV access and sent lab work and cultures. Awaiting CT scans. 05/28/18 11:40 CBC with leukocytosis, white blood count 18,000. CBC otherwise unremarkable. Comprehensive metabolic panel is within normal limits. Lactic acid is 0.7. Patient currently resting without distress. Awaiting CT results. 05/28/18 11:[address] to [address] scan, pending radiologist reports. Patient reports he has the chills and feels hot. I recheck patient's temperature and it is 100.3 orally. Heart rate is down to 105. I will order acetaminophen suppository for the patient as he needs to be n.p.o. Anticipate transfer patient to higher level of care that has ENT capability. 05/28/18 12:00 CT of the chest is negative for any acute findings. CT soft tissue neck shows a faintly rim-enhancing subcutaneous fluid collection anterior to the right lobe of the thyroid. This measures 3.3 cm. It states that it is possibly within the muscle belly of the sternohyoid muscle. 05/28/18 12:56 Spoke with ENT behavioral consultant, Dr. Lisa Moore at [facility] who agrees to see patient. She did state however this will be an ER to ER transfer. The transfer center placed me on hold and spoke with their attending in the emergency department Dr. Michael Dewitt who agrees to accept patient transfer to the emergency department at [facility]. We will work on transportation at this time. 05/28/18 13:15 Patient called out complaining of pain. Will order Dilaudid 1 mg. Patient remains stable, heart rate 101, blood pressure 154/92, SPO2 100%, respiratory rate 18, patient still speaking in full and complete sentences and swallowing without difficulty. 05/28/18 15:10 No change in patient's status. Patient reports that the Dilaudid helped with the pain. We are currently awaiting transport. Vital signs are all stable. Heart rate down to 90. 05/28/18 16:10 Additional pain ordered, patient is becoming anxious ordered Ativan 1 mg IV. Transport should be here at approximately 1700 to get the patient. Patient updated on plan of care. Patient continues to be able to swallow without difficulty and there is no airway compromise. 05/28/18 18:10 [facility] transport crew at the bedside. I evaluated the patient who remains in stable condition. Airway patent, patient speaking in full and complete sentences. Patient reports pain controlled at this time. Patient stable for transport to [facility]. - Vital Signs Vital signs: Temp Pulse Resp BP Pulse Ox 99.1 F 120 H 18 134/76 H 99 05/28/18 14:52 05/28/18 09:12 05/28/18 16:00 05/28/18 15:00 05/28/18 16:00 - Laboratory Result Diagrams: 05/28/18 10:24 05/28/18 10:24 Laboratory results interpreted by me: 05/28/18 05/28/18 10:24 10:24 WBC 18.7 H RBC 3.97 L Hgb 11.8 L Hct 35.0 L Seg Neutrophils % 86.8 H Lymphocytes % 5.6 L Absolute Neutrophils 16.3 H Sodium 136.6 L Glucose 142 H ALT 17 L Critical Care Note - Critical Care Note Total time excluding time spent on procedures (mins): 35 - Multiple re-evaluations made of this patient by both myself and Dr. Christopher, see course notes.
[2018-05-28] MEDS ORDERED: NORMAL SALINE 1000 ML 1,000 ML IV ONE ×3 (09:52→15:39)
[2018-05-28 10:46] LABS: ABSOLUTE BASOPHILS # (AUTO) 0.1 10^3/uL (0.0-0.2); ABSOLUTE LYMPHOCYTES (AUTO) 1.1 10^3/uL (0.5-4.7); ABSOLUTE MONOCYTES (AUTO) 1.3 10^3/uL (0.1-1.4); ABSOLUTE NEUT (AUTO) 16.3 10^3/uL (1.7-8.2); BASOPHILS % (AUTO) 0.7 % (0-2); EOSINOPHILS % (AUTO) 0.1 % (0-6); HEMOGLOBIN 11.8 g/dL (13.5-17.0); LYMPHOCYTES % (AUTO) 5.6 % (13-45); MEAN CORPUSCULAR HEMOGLOBIN 29.7 pg (27.0-33.4); MEAN CORPUSCULAR HGB CONC 33.8 g/dL (32.0-36.0); MEAN CORPUSCULAR VOLUME 88 fl (80-97); MONOCYTES % (AUTO) 6.8 % (3-13); PLATELET COUNT 343 10^3/uL (150-450); RED BLOOD COUNT 3.97 10^6/uL (4.35-5.55); RED CELL DISTRIBUTION WIDTH 13.1 % (11.5-14.0); SEGMENTED NEUTROPHILS % (AUTO) 86.8 % (42-78); TOTAL CELLS COUNTED % (AUTO) 100 %; WHITE BLOOD COUNT 18.7 10^3/uL (4.0-10.5)
[2018-05-28] MEDS ORDERED: PIPERACILLIN/TAZOBACTAM 3.375 GM VIAL IV ONE ×2 (10:47→18:00)
[2018-05-28 11:01] LABS: ALANINE AMINOTRANSFERASE 17 U/L (21-72); ALBUMIN 4.1 g/dL (3.5-5.0); ALKALINE PHOSPHATASE 103 U/L (38-126); ANION GAP 10 (5-19); ASPARTATE AMINO TRANSFERASE 21 U/L (17-59); BILIRUBIN,DIRECT 0.2 mg/dL (0.0-0.4); BILIRUBIN,TOTAL 0.7 mg/dL (0.2-1.3); BLOOD UREA NITROGEN 9 mg/dL (7-20); CALCIUM 9.5 mg/dL (8.4-10.2); CARBON DIOXIDE 27 mmol/L (22-30); CHLORIDE 100 mmol/L (98-107); GLUCOSE 142 mg/dL (75-110); SODIUM 136.6 mmol/L (137-145); TOTAL PROTEIN 7.4 g/dL (6.3-8.2)
[2018-05-28] MEDS ORDERED: MORPHINE SULFATE 10 MG/ML INJ IV ONE (11:39)
[2018-05-28] MEDS ORDERED: ACETAMINOPHEN 650 MG SUPP.RECT PR ONE (11:52)
--- NOTE | 2018-05-28 12:13 | RADIOLOGY REPORT (SQ) ---
EXAM DESCRIPTION: CT SOFT TISSUE NECK WITH COMPLETED DATE/TIME: 05/28/2018 11:30 am REASON FOR STUDY: anterior neck swelling, eval for abscess COMPARISON: None. TECHNIQUE: Post IV contrasted scanning from skull base through lung apices with review of bone, soft tissue and lung windows. Reconstructed coronal and sagittal MPR images reviewed. All images stored on PACS. All CT scanners at this facility use dose modulation, iterative reconstruction, and/or weight based d osing when appropriate to reduce radiation dose to as low as reasonably achievable (ALARA). [facility]: Dose Right [facility]: CareDose [facility]: Dose Right [facility]: Teradose 4D [facility]: [employer] ([facility]) CONTRAST TYPE AND DOSE: contrast/concentration: Isovue 350.00 mg/ml; Total Contrast Delivered: 75.0 ml; Total Saline Delivered: 33.7 ml RENAL FUNCTION: None required. The patient is less than 50 years old. RADIATION DOSE: CT Rad equipment meets quality standard of care and radiation dose reduction techniq ues were employed. CTDIvol: 13.1 - 25.1 mGy. DLP: 1516 mGy-cm. . LIMITATIONS: None. FINDINGS: SKULL BASE: Intact. MAJOR SALIVARY GLANDS: No solid or cystic masses. No inflammatory changes. LYMPHADENOPATHY: No adenopathy. MUCOSAL MASSES OR ASYMMETRY: No mucosal masses or asymmetry. LARYNX/CORDS: No abnormal findings. VASCULAR STRUCTURES: The major vessels are patent. LUNG APICES: Clear. BONES: Intact. THYROID: Normal size. No masses. PARANASAL SINUSES: Clear. OTHER: There is a faintly rim enhancing subcutaneous fluid collection anterior to the right lobe of t he thyroid, measuring 3.3 x 2.3 cm, possibly within the muscle belly of the sternohyoid muscle. Asso ciated soft tissue swelling. IMPRESSION: There is a faintly rim enhancing subcutaneous fluid collection anterior to the right lob e of the thyroid, measuring 3.3 cm, possibly within the muscle belly of the sternohyoid muscle. Find ing is in keeping with abscess given stated clinical concern. This may be further evaluated or aspir ated under ultrasound guidance if desired. TECHNICAL DOCUMENTATION: JOB ID: [id number] Quality ID # [id number]: Final reports with documentation of one or more dose reduction techniques (e.g., Au tomated exposure control, adjustment of the mA and/or kV according to patient size, use of iterative reconstruction technique) 2010 [employer]- All Rights Reserved Reading location - IP/workstation name: [email or web address]
--- NOTE | 2018-05-28 12:19 | RADIOLOGY REPORT (SQ) ---
EXAM DESCRIPTION: CT CHEST WITH COMPLETED DATE/TIME: 05/28/2018 11:30 am REASON FOR STUDY: r/o mediastinitis COMPARISON: Same day CT neck TECHNIQUE: CT scan of the chest performed using helical scanning technique with dynamic intravenous contrast injection. Images reviewed with lung, soft tissue and bone windows. Reconstructed coronal and sagittal MPR and MIP images reviewed. All images stored on PACS. All CT scanners at this facility use dose modulation, iterative reconstruction, and/or weight based d osing when appropriate to reduce radiation dose to as low as reasonably achievable (ALARA). [facility]: Dose Right [facility]: CareDose [facility]: Dose Right [facility]: Teradose 4D [facility]: [employer] CONTRAST TYPE AND DOSE: 75 mL Omnipaque 350 iodinated contrast IV RENAL FUNCTION: None required. The patient is less than 50 years old. RADIATION DOSE: Not reported LIMITATIONS: None. FINDINGS: LUNGS AND PLEURA: Small calcified nodules in the right lower lobe with a single adjacent n oncalcified nodule measuring 5 mm, consistent with benign sequelae of infection or inflammation. No opacities, suspicious nodules, or masses. No pneumothorax. No effusions. HILAR AND MEDIASTINAL STRUCTURES: No identified masses or abnormal nodes. HEART AND VASCULAR STRUCTURES: No aneurysm or dissection. No central pulmonary emboli. No pericardi al effusion. HARDWARE: None in the chest. UPPER ABDOMEN: No significant findings. Limited exam. THYROID AND OTHER SOFT TISSUES: No masses. No adenopathy. BONES: No significant finding. OTHER: No other significant finding. IMPRESSION: No CT findings suspicious for mediastinitis. No mediastinal fluid or lymphadenopathy. There is soft tissue in the anterior mediastinum which likely reflects thymic remnant given patient a ge. TECHNICAL DOCUMENTATION: JOB ID: [id number] Quality ID # [id number]: Final reports with documentation of one or more dose reduction techniques (e.g., Au tomated exposure control, adjustment of the mA and/or kV according to patient size, use of iterative reconstruction technique) 2010 [employer]- All Rights Reserved Reading location - IP/workstation name: [email or web address]
[2018-05-28] MEDS ORDERED: HYDROMORPHONE HCL INJ/PF 2 MG/ML AMPULE IV ONE ×2 (13:15→15:40)
[2018-05-28] MEDS ORDERED: LORAZEPAM INJ 2 MG/1 ML VIAL IV ONE (15:39)
[2018-05-28 19:47] VITALS: BP 158/86
== END 2018-05-28 18:12 | disposition short-term general hospital (02) ==
LOC: ER 09:07
DX: L02.11 Cutaneous abscess of neck (principal); R68.83 Chills (without fever); R61 Generalized hyperhidrosis; R00.0 Tachycardia, unspecified; D72.829 Elevated white blood cell count, unspecified; F41.9 Anxiety disorder, unspecified; I10 Essential (primary) hypertension; F17.200 Nicotine dependence, unspecified, uncomplicated; Z88.8 Allergy status to other drugs, medicaments and biological substances
CPT/HCPCS: 96376; 99291; 96361; 96375; 96365; 96367; 36415; 87040; 85025; 80053; 86701; 83605; 70491; 71260; J2270; J1170; J2060; J7030; J3370; J2543

== ENCOUNTER 2018-09-02 07:28 | Inpatient (IN) | payer SELFPAY ==
[2018-09-02] MEDS ORDERED: NORMAL SALINE 1000 ML 1,000 ML IV ONE (07:53)
[2018-09-02] MEDS ORDERED: VANCOMYCIN HCL INJ 1000 MG VIAL IV ONE (07:58)
[2018-09-02] MEDS ORDERED: CLINDAMYCIN 300 MG/D5W RTU 300 MG/50 ML RTUPB IV ONE (07:58)
[2018-09-02 09:12] LABS: ABSOLUTE BASOPHILS # (AUTO) 0.1 10^3/uL (0.0-0.2); ABSOLUTE EOSINOPHILS # (AUTO) 0.1 10^3/uL (0.0-0.6); ABSOLUTE LYMPHOCYTES (AUTO) 1.6 10^3/uL (0.5-4.7); ABSOLUTE MONOCYTES (AUTO) 0.9 10^3/uL (0.1-1.4); ABSOLUTE NEUT (AUTO) 13.5 10^3/uL (1.7-8.2); BASOPHILS % (AUTO) 0.4 % (0-2); EOSINOPHILS % (AUTO) 0.3 % (0-6); HEMATOCRIT 37.1 % (37.9-51.0); HEMOGLOBIN 12.8 g/dL (13.5-17.0); LYMPHOCYTES % (AUTO) 9.7 % (13-45); MEAN CORPUSCULAR HGB CONC 34.4 g/dL (32.0-36.0); MEAN CORPUSCULAR VOLUME 87 fl (80-97); MONOCYTES % (AUTO) 5.3 % (3-13); PLATELET COUNT 380 10^3/uL (150-450); RED BLOOD COUNT 4.26 10^6/uL (4.35-5.55); RED CELL DISTRIBUTION WIDTH 13.8 % (11.5-14.0); SEGMENTED NEUTROPHILS % (AUTO) 84.3 % (42-78); TOTAL CELLS COUNTED % (AUTO) 100 %; WHITE BLOOD COUNT 16.1 10^3/uL (4.0-10.5)
[2018-09-02 09:21] LABS: APPEARANCE,URINE CLEAR; BILIRUBIN,URINE NEGATIVE (NEGATIVE); COLOR,URINE YELLOW; GLUCOSE, URINE NEGATIVE (NEGATIVE); KETONES,URINE NEGATIVE (NEGATIVE); LEUKOCYTE ESTERASE,URINE NEGATIVE (NEGATIVE); NITRITE,URINE NEGATIVE (NEGATIVE); PROTEIN,URINE NEGATIVE (NEGATIVE); URINE SPECIFIC GRAVITY 1.033
[2018-09-02 09:31] LABS: ALANINE AMINOTRANSFERASE 23 U/L (21-72); ALBUMIN 4.2 g/dL (3.5-5.0); ALKALINE PHOSPHATASE 103 U/L (38-126); ANION GAP 10 (5-19); ASPARTATE AMINO TRANSFERASE 23 U/L (17-59); BILIRUBIN,DIRECT 0.3 mg/dL (0.0-0.4); BILIRUBIN,TOTAL 0.4 mg/dL (0.2-1.3); BLOOD UREA NITROGEN 15 mg/dL (7-20); CALCIUM 9.9 mg/dL (8.4-10.2); CARBON DIOXIDE 27 mmol/L (22-30); CHLORIDE 103 mmol/L (98-107); GLUCOSE 135 mg/dL (75-110); POTASSIUM 3.7 mmol/L (3.6-5.0); TOTAL PROTEIN 7.7 g/dL (6.3-8.2)
[2018-09-02 09:35] LABS: URINE AMPHETAMINES SCREEN NEGATIVE; URINE BARBITURATES SCREEN NEGATIVE; URINE BENZODIAZEPINES SCREEN NEGATIVE; URINE COCAINE SCREEN NEGATIVE; URINE MARIJUANA (THC) SCREEN NEGATIVE; URINE METHADONE SCREEN NEGATIVE; URINE PHENCYCLIDINE SCREEN NEGATIVE
--- NOTE | 2018-09-02 09:37 | RADIOLOGY REPORT (SQ) ---
EXAM DESCRIPTION: CT SOFT TISSUE NECK WITH COMPLETED DATE/TIME: 09/02/2018 9:17 am REASON FOR STUDY: Right anterior lateral neck abscess COMPARISON: CT soft tissue neck 05/28/2018 TECHNIQUE: Post IV contrasted scanning from skull base through lung apices with review of bone, soft tissue and lung windows. Reconstructed coronal and sagittal MPR images reviewed. All images stored on PACS. All CT scanners at this facility use dose modulation, iterative reconstruction, and/or weight based d osing when appropriate to reduce radiation dose to as low as reasonably achievable (ALARA). [facility]: Dose Right [facility]: CareDose [facility]: Dose Right [facility]: Teradose 4D [facility]: Zimory CONTRAST TYPE AND DOSE: contrast/concentration: Isovue 350.00 mg/ml; Total Contrast Delivered: 74.0 ml; Total Saline Delivered: 55.0 ml RENAL FUNCTION: None required. The patient is less than 50 years old. RADIATION DOSE: CT Rad equipment meets quality standard of care and radiation dose reduction techniq ues were employed. CTDIvol: 10.8 mGy. DLP: 356 mGy-cm. . LIMITATIONS: None. FINDINGS: A 4 cm craniocaudad by 3.2 cm AP x 2.5 cm transverse abscess is present in the subcutaneou s fat, along the posterior aspect of the sternocleidomastoid muscle in the supraclavicular region. T his abscess is best shown on axial image 57, coronal image 35, and sagittal image 22. This is in a d ifferent location than the previous abscess seen on 05/28/2018 in the sternal notch region. Findings d iscussed with Dr. GOODSON in the emergency room. There is diffuse reactive adenopathy in the neck with multiple borderline enlarged lymph nodes in the right posterior triangle and carotid space. 1.5 x 1 right supraclavicular lymph node axial image 72 . SKULL BASE: Inferior brain parenchyma unremarkable MAJOR SALIVARY GLANDS: No solid or cystic masses. No inflammatory changes. LYMPHADENOPATHY: As above MUCOSAL MASSES OR ASYMMETRY: No mucosal masses or asymmetry. LARYNX/CORDS: No abnormal findings. VASCULAR STRUCTURES: The major vessels are patent. LUNG APICES: Clear. BONES: Intact. THYROID: Normal size. No masses. PARANASAL SINUSES: Clear. OTHER: No other significant finding. IMPRESSION: 4 x 3.2 x 2.5 cm superficial subcutaneous abscess in the right lower lateral neck along the superficial aspect of the distal sternocleidomastoid muscle TECHNICAL DOCUMENTATION: JOB ID: [id number] Quality ID # [id number]: Final reports with documentation of one or more dose reduction techniques (e.g., Au tomated exposure control, adjustment of the mA and/or kV according to patient size, use of iterative reconstruction technique) 2010 [employer]- All Rights Reserved Reading location - IP/workstation name: [email or web address]
[2018-09-02] MEDS ORDERED: MORPHINE SULFATE 10 MG/ML INJ IV ONE ×2 (09:50→12:15)
[2018-09-02] MEDS ORDERED: KETOROLAC TROMETHAMINE INJ/PF 30 MG/1 ML SDV IV ONE (09:50)
[2018-09-02] MEDS ORDERED: LIDOCAINE 1%/EPINEPHRINE INJ 20 ML VIAL INJ ONE (10:52)
[2018-09-02] MEDS ORDERED: LIDOCAINE 1%/EPINEPHRINE INJ 20 ML VIAL INFIL ONE (10:52)
--- NOTE | 2018-09-02 12:11 | PDOC CONSULTATION ---
Consultation Consult Date: 09/02/18 Consult reason:: right lateral neck abscess History of Present Illness History of Present Illness: KAILEE PERALES is a 37 year old male heroin user, who presents to the ED with rednes and pain and swelling ofthe right lateral lower neck A CT scan has been done and it shows a 4 cm lateral neck abscess, superficial. The paient had a previous neck anterior abscess a few monthsa go drained at an outside hospital. His WBC is 16K. Past Medical History Cardiac Medical History: Reports: Hypertension, Heart Murmur Neurological Medical History: Reports: Migraine Psychiatric Medical History: Reports: Depression - Situational Past Surgical History Past Surgical History: Reports: Tonsillectomy Social History Smoking Status: Current Every Day Smoker Frequency of Alcohol Use: None Hx Recreational Drug Use: Yes Drugs: Cocaine, Heroin, Marijuana, Ecstasy Hx Prescription Drug Abuse: Yes - teenage years Family History Family History: Reviewed & Not Pertinent Parental Family History Reviewed: No Children Family History Reviewed: No Sibling(s) Family History Reviewed.: No Medication/Allergy Home Medications: No Home Medications 05/28/18 Allergies/Adverse Reactions: No Known Allergies Allergy (Unverified 09/02/18 09:33) Physical Exam Vital Signs: Temp Pulse Resp BP Pulse Ox 98.5 F 138 H 20 163/97 H 100 09/02/18 07:36 09/02/18 07:36 09/02/18 07:36 09/02/18 07:36 09/02/18 07:36 Intake & Output 09/01/18 09/02/18 09/03/18 06:59 06:59 06:59 Intake Total 1050 Balance 1050 Weight 67.6 kg General appearance: PRESENT: mild distress Head exam: PRESENT: atraumatic Eye exam: PRESENT: conjunctival injection, EOMI Neck exam: PRESENT: full ROM, other - area of tendernes,erythema, andswelling right lateral lower neck Respiratory exam: PRESENT: clear to auscultation mariya Cardiovascular exam: PRESENT: RRR GI/Abdominal exam: PRESENT: soft Rectal exam: PRESENT: deferred Extremities exam: PRESENT: full ROM Musculoskeletal exam: PRESENT: full ROM Psychiatric exam: PRESENT: appropriate affect Skin exam: PRESENT: warm Results Laboratory Results: 09/02/18 08:43 09/02/18 08:43 09/02/18 09/02/18 09/02/18 08:43 08:43 08:43 WBC 16.1 H RBC 4.26 L Hgb 12.8 L Hct 37.1 L MCV 87 MCH 30.0 MCHC 34.4 RDW 13.8 Plt Count 380 Seg Neutrophils % 84.3 H Lymphocytes % 9.7 L Monocytes % 5.3 Eosinophils % 0.3 Basophils % 0.4 Absolute Neutrophils 13.5 H Absolute Lymphocytes 1.6 Absolute Monocytes 0.9 Absolute Eosinophils 0.1 Absolute Basophils 0.1 Sodium 140.0 Potassium 3.7 Chloride 103 Carbon Dioxide 27 Anion Gap 10 BUN 15 Creatinine 0.83 Est GFR ( Amer) > 60 Est GFR (Non-Af Amer) > 60 Glucose 135 H Calcium 9.9 Total Bilirubin 0.4 AST 23 ALT 23 Alkaline Phosphatase 103 Total Protein 7.7 Albumin 4.2 Urine Color YELLOW Urine Appearance CLEAR Urine pH 5.0 Ur Specific [place] 1.033 Urine Protein NEGATIVE Urine Glucose (UA) NEGATIVE Urine Ketones NEGATIVE Urine Blood NEGATIVE Urine Nitrite NEGATIVE Ur Leukocyte Esterase NEGATIVE Urine WBC (Auto) 0 Urine RBC (Auto) 5 Impressions: Soft Tissue Neck CT 09/02/18 07:54 IMPRESSION: 4 x 3.2 x 2.5 cm superficial subcutaneous abscess in the right lower lateral neck along the superficial aspect of the distal sternocleidomastoid muscle Assessment & Plan - Plan Summary Plan Summary: A/ HX of heroin abuse Right lateral neck superficial abscess Hx of previous anterior neck abscess drained at outside hospital [id number] P/ I&D of abscess at bedside in the ER. Procedure, risks, benefits, complications explained to the patient, he understands, and decides to proceed Admission to follow as per Hospitalist IV Abx
--- NOTE | 2018-09-02 12:57 | Operative Report ---
Nonrecallable Operative Report DATE OF SURGERY: 09/02/18 PREOPERATIVE DIAGNOSIS: right lateral lower neck subcutanelus abscess POSTOPERATIVE DIAGNOSIS: same OPERATION: I&D right lateral neck abscess SURGEON: SONU ELI ANESTHESIA: Local - 30 mL 1% lidocaine with epi TISSUE REMOVED OR ALTERED: 10 mL pus COMPLICATIONS: none ESTIMATED BLOOD LOSS: < 5 mL INTRAOPERATIVE FINDINGS: small subcutaneous cavity PROCEDURE: see dictation
--- NOTE | 2018-09-02 12:58 | ER Document Report ---
Entered by LEI ALMANZAR SCRIBE 09/02/18 0801 Acting as scribe for:RIA GOODSON MD ED General - General Chief Complaint: Abscess Stated Complaint: POSSIBLE ABSCESS Time Seen by Provider: 09/02/18 07:44 Mode of Arrival: Ambulatory Information source: Patient Notes: Patient is a 37 year old male with a history of kidney stones and heroin use presents to the emergency department complaining of an abscess to the right side of his neck. Patient states the area of his abscess is where he used to injection heroin, however he reports not using heroin since May 2018. He has been on Suboxone since then. He had been on methadone sometime previously. He was seen here on 05/28/2018 complaining of similar problems and was diagnosed with an abscess anterior to the right lobe of the thyroid and was transferred to [place]. At that time, he was told he did not have endocarditis. TRAVEL OUTSIDE OF THE [place] IN LAST 30 DAYS: No - Related Data Allergies/Adverse Reactions: No Known Allergies Allergy (Unverified 09/02/18 09:33) Past Medical History - General Information source: Patient - Social History Smoking Status: Current Every Day Smoker Cigarette use (# per day): Yes Chew tobacco use (# tins/day): No Smoking Education Provided: No Frequency of alcohol use: None Drug Abuse: None Family History: Reviewed & Not Pertinent - Past Medical History Cardiac Medical History: Reports: Hx Hypertension, Hx Heart Murmur Neurological Medical History: Reports: Hx Migraine Renal/ Medical History: Reports: Hx Kidney Stones Psychiatric Medical History: Reports: Hx Anxiety, Hx Depression - Situational Past Surgical History: Reports: Hx Kidney (Renal Surgery) - Ureteral stent, Hx Tonsillectomy - Immunizations Immunizations up to date: Yes Hx Diphtheria, Pertussis, Tetanus Vaccination: Yes Review of Systems - Review of Systems Constitutional: No symptoms reported EENT: No symptoms reported Cardiovascular: No symptoms reported Respiratory: No symptoms reported Gastrointestinal: No symptoms reported Genitourinary: No symptoms reported Male Genitourinary: No symptoms reported Musculoskeletal: See HPI Skin: See HPI Hematologic/Lymphatic: No symptoms reported Neurological/Psychological: No symptoms reported -: Yes All other systems reviewed and negative Physical Exam - Vital signs Vitals: Temp Pulse Resp BP Pulse Ox 98.5 F 138 H 20 163/97 H 100 09/02/18 07:36 09/02/18 07:36 09/02/18 07:36 09/02/18 07:36 09/02/18 07:36 - Notes Notes: GENERAL: Alert, interacts well, appears anxious. No acute distress. HEAD: Normocephalic, atraumatic. EYES: Pupils equal, round, and reactive to light. Extraocular movements intact. ENT: Oral mucosa moist, tongue midline. NECK: Full range of motion. Supple. Trachea midline. Right lateral neck contains an area of induration which extends into the supraclavicular fossa. Area is erythematous, warm and tender to palpation. LUNGS: Clear to auscultation bilaterally, no wheezes, rales, or rhonchi. No respiratory distress. HEART: Tachycardic with a rate of 140, regular rhythm. No murmurs, gallops, or rubs. ABDOMEN: Soft, non-tender. Non-distended. Bowel sounds present in all 4 quadrants. No guarding, rigidity, or rebound. EXTREMITIES: Moves all 4 extremities spontaneously. NEUROLOGICAL: Alert and oriented x3. Normal speech. PSYCH: Appears anxious. SKIN: Warm, dry. Course - Re-evaluation Re-evalutation: 09/02/18 13:04 Incision and drainage of the right neck abscess was done by Dr. Lozano. He reports he got about 10 mL's of pus out of the wound. - Vital Signs Vital signs: Temp Pulse Resp BP Pulse Ox 98.5 F 138 H 20 163/97 H 100 09/02/18 07:36 09/02/18 07:36 09/02/18 07:36 09/02/18 07:36 09/02/18 07:36 - Laboratory Result Diagrams: 09/02/18 08:43 09/02/18 08:43 Laboratory results interpreted by me: 09/02/18 09/02/18 09/02/18 08:43 08:43 08:43 WBC 16.1 H RBC 4.26 L Hgb 12.8 L Hct 37.1 L Seg Neutrophils % 84.3 H Lymphocytes % 9.7 L Absolute Neutrophils 13.5 H Glucose 135 H Urine Urobilinogen 2.0 H - Diagnostic Test Radiology reviewed: Image reviewed, Reports reviewed - 4.0 X 3.2 X 2.5 cm super ficial subcutaneous abscess in the right lower lateral neck along the superficial aspect of the distal sternocleidomastoid muscle. - Consults Dr. Lozano Time consulted: 09:54 Consulted provider: will come to ER Juani Shepherd NP Time consulted: 13:10 Consulted provider: will come to ER Discharge - Discharge Clinical Impression: Neck abscess, Tachycardia High blood pressure Qualifiers: Hypertension type: unspecified Qualified Code(s): I10 - Essential (primary) hypertension Condition: Good Disposition: ADMITTED INPATIENT Admitting Provider: Dayana (Hospitalist) Unit Admitted: Medical Floor Scribe Attestation: 09/02/18 08:42 I personally performed the services described in the documentation, reviewed and edited the documentation which was dictated to the scribe in my presence, and it accurately records my words and actions. I personally performed the services described in the documentation, reviewed and edited the documentation which was dictated to the scribe in my presence, and it accurately records my words and actions.
--- NOTE | 2018-09-02 13:49 | OPERATIVE REPORT E ---
Operative Report NAME: KAILEE PERALES : 1980 AGE: 37Y DATE OF SURGERY: 09/02/2018 ROOM: PREOPERATIVE DIAGNOSES: 1. Right lateral lower neck subcutaneous abscess. 2. History of neck abscess. 3. History of heroin abuse. POSTOPERATIVE DIAGNOSES: 1. Right lateral lower neck subcutaneous abscess. 2. History of neck abscess. 3. History of heroin abuse. PROCEDURE: Incision and drainage of right lateral lower neck abscess. SURGEON: SONU ELI M.D. DRAPERY AND UPHOLSTERY ESTIMATOR: None. ANESTHESIA: 30 mL of 1% lidocaine with epinephrine. ESTIMATED BLOOD LOSS: Negligible, less than 5 mL. COMPLICATIONS: None. INDICATIONS AND FINDINGS: This is a 37-year-old male with a history of heroin abuse. According to the patient he has been off heroin for quite a few months. Currently he is on Suboxone p.o. He presented with an anterior neck abscess several months ago for which he was transferred to an outside hospital. He presented to the emergency room today complaining of redness, swelling, and pain of the right lateral lower neck. CAT scan was done revealing a right lateral lower neck abscess. The decision was made to drain the abscess at bedside in the emergency room. The procedure, risks, benefits, and complications were explained to the patient. He understands and desires to proceed. DESCRIPTION OF PROCEDURE: The procedure was done in the emergency room. The patient was placed in supine position. The right side of the neck was prepped and draped in the usual fashion. The area was infiltrated with about 30 mL of lidocaine with epinephrine. Following this a lower transverse incision was made in the neck and a gush of pus was obtained; this was sent for aerobic and anaerobic culture and Gram stain. The incision was then extended superiorly and inferiorly. The entire abscess cavity was entered. A finger was then placed inside the cavity and tissue septations removed. The area was irrigated with about 100 L of warm normal saline until clear. Following this the area was packed with Bacitracin ointment and quarter-inch Nu Gauze with sterile dressing on top and tape. The patient tolerated the procedure well. DICTATING PHYSICIAN: SONU ELI M.D. [id number] PHY#: [id number] ID: [id number] JOB#: [id number] ACCT: [id number] cc:SONU ELI M.D. > LEONIE
[2018-09-02] MEDS ORDERED: ONDANSETRON 4 MG TAB.RAPDIS PO PRN (14:03)
[2018-09-02] MEDS ORDERED: ACETAMINOPHEN 325 MG TABLET PO PRN (14:03)
[2018-09-02] MEDS ORDERED: VANCOMYCIN HCL 0 MG in DEXTROSE 5%-WATER 250 ML IV NR (14:15)
[2018-09-02] MEDS: NORMAL SALINE 1000 ML 1,000 ML IV PRN ×3 (14:48→22:14)
[2018-09-02] MEDS: IBUPROFEN 800 MG TABLET PO PRN ×2 (14:50→22:14)
--- NOTE | 2018-09-02 17:05 | PDOC H&P ---
History of Present Illness Admission Date/PCP: 09/02/18 14:13 Patient complains of: ABSCESS R NECK History of Present Illness: KAILEE PERALES is a 37 year old male with a PMH of nephrolithiasis and IVDU (stopped using ). The patient states he has always noticed a small "lump "on the base of his right neck, very close to a site where he would previously i nject illicit drugs. Within the last 48 hours or so, the patient states the lump nearly tripled in size. Growing "from the size of a jelly woodruff to the size of a grape." The patient endorses body aches and chills. He states he took Tylenol at home to alleviate the pain associated with the abscess, but it offered no relief. This prompted the patient to come to the emergency department. Laboratory studies reveal moderate leukocytosis (16) with a left shift, all other laboratory studies including chemistry, urinalysis and Utox were negative. Surgery performed I&D at the bedside, approximately 10 mL of pus were drained from the abscess. Wound culture obtained at this time. The patient was given a dose of vancomycin and clindamycin in the emergency department. Upon assessment, the patient is resting comfortably in bed on room air. The patient endorses mild "soreness "to the abscess site. The patient speaks with very pressured speech, he appears very anxious. He states multiple times that he has not used IV drugs since his last hospitalization in May, which required transfer to [facility] for a vascular injury. The patient is warm to touch. L CTA. S1-S2. Sinus tachycardia noted on the monitor. Moderate- sized area of erythema at the base of the right neck. Abscess site packed with gauze and iodoform. Plan to admit to hospitalist service for treatment of large neck abscess in a former IV drug abuser. Past Medical History Cardiac Medical History: Reports: Hypertension, Heart Murmur Neurological Medical History: Reports: Migraine Psychiatric Medical History: Reports: Depression - Situational Past Surgical History Past Surgical History: Reports: None, Tonsillectomy Social History Information Source: Patient Lives with: Friend Smoking Status: Current Every Day Smoker Frequency of Alcohol Use: None Hx Recreational Drug Use: Yes Drugs: Cocaine, Heroin, Marijuana, Ecstasy Hx Prescription Drug Abuse: Yes - teenage years Past Social History Note: PATIENT STATES HE HAS NOT USED IVDU SINCE LAST HOSPITALIZATION IN . PATIENT IS ADAMANT ABOUT HIS SOBRIETY. DOES NOT WANT TO RECEIVE NARCOTICS OR BENZOS - Advance Directive Resuscitation Status: Full Code Family History Family History: Reviewed & Not Pertinent Parental Family History Reviewed: Yes Children Family History Reviewed: Yes Sibling(s) Family History Reviewed.: Yes Medication/Allergy Home Medications: No Home Medications 05/28/18 Allergies/Adverse Reactions: No Known Allergies Allergy (Unverified 09/02/18 09:33) Review of Systems All systems: reviewed and no additional remarkable complaints except as stated Constitutional: PRESENT: fever(s) Eyes: ABSENT: visual disturbances Ears: ABSENT: hearing changes Nose, Mouth, and Throat: ABSENT: vertigo Cardiovascular: ABSENT: chest pain Respiratory: ABSENT: dyspnea Gastrointestinal: ABSENT: abdominal pain, nausea Genitourinary: ABSENT: dysuria Musculoskeletal: ABSENT: deformity, muscle weakness Neurological: ABSENT: syncope, vertigo, weakness Psychiatric: PRESENT: anxiety Endocrine: ABSENT: cold intolerance, heat intolerance Physical Exam Vital Signs: Temp Pulse Resp BP Pulse Ox 99.7 F 138 H 24 H 131/72 H 100 09/02/18 14:52 09/02/18 07:36 09/02/18 16:01 09/02/18 16:00 09/02/18 16:01 Intake & Output 09/01/18 09/02/18 09/03/18 06:59 06:59 06:59 Intake Total 3050 Balance 3050 Weight 67.6 kg General appearance: PRESENT: thin Eye exam: PRESENT: conjunctiva pink, PERRLA Mouth exam: PRESENT: moist, tongue midline Respiratory exam: PRESENT: clear to auscultation mariya, symmetrical, unlabored Cardiovascular exam: PRESENT: tachycardia Pulses: PRESENT: normal radial pulses, normal dorsalis pedis pul Vascular exam: PRESENT: normal capillary refill GI/Abdominal exam: PRESENT: soft. ABSENT: distended, tenderness Rectal exam: PRESENT: deferred Extremities exam: PRESENT: full ROM. ABSENT: pedal edema Musculoskeletal exam: PRESENT: ambulatory, full ROM Neurological exam: PRESENT: alert, awake, oriented to person, oriented to place, oriented to time, oriented to situation Psychiatric exam: PRESENT: appropriate affect Skin exam: PRESENT: dry, intact, normal color Additional comments: EVALUATED AFTER I&D. AREA OF ERYTHEMA AND WARM TO TOUCH TO BASE OF R LATERAL NECK. PACKED WITH IODOFORM BY SURGERY. Results Laboratory Results: 09/02/18 08:43 09/02/18 08:43 09/02/18 09/02/18 09/02/18 08:43 08:43 08:43 WBC 16.1 H RBC 4.26 L Hgb 12.8 L Hct 37.1 L MCV 87 MCH 30.0 MCHC 34.4 RDW 13.8 Plt Count 380 Seg Neutrophils % 84.3 H Lymphocytes % 9.7 L Monocytes % 5.3 Eosinophils % 0.3 Basophils % 0.4 Absolute Neutrophils 13.5 H Absolute Lymphocytes 1.6 Absolute Monocytes 0.9 Absolute Eosinophils 0.1 Absolute Basophils 0.1 Sodium 140.0 Potassium 3.7 Chloride 103 Carbon Dioxide 27 Anion Gap 10 BUN 15 Creatinine 0.83 Est GFR ( Amer) > 60 Est GFR (Non-Af Amer) > 60 Glucose 135 H Calcium 9.9 Total Bilirubin 0.4 AST 23 ALT 23 Alkaline Phosphatase 103 Total Protein 7.7 Albumin 4.2 Urine Color YELLOW Urine Appearance CLEAR Urine pH 5.0 Ur Specific [place] 1.033 Urine Protein NEGATIVE Urine Glucose (UA) NEGATIVE Urine Ketones NEGATIVE Urine Blood NEGATIVE Urine Nitrite NEGATIVE Ur Leukocyte Esterase NEGATIVE Urine WBC (Auto) 0 Urine RBC (Auto) 5 Impressions: Soft Tissue Neck CT 09/02/18 07:54 IMPRESSION: 4 x 3.2 x 2.5 cm superficial subcutaneous abscess in the right lower lateral neck along the superficial aspect of the distal sternocleidomastoid muscle Status: Imported from PACS Assessment and Plan - Diagnosis (1) Abscess of neck Is this a current diagnosis for this admission?: Yes Plan: At site of previous IV drug injection +leukocytosis. Afebrile Patient admits to avoiding illicit drugs since UTOX negative I&D at bedside by surgery Awaiting wound C&S Blood cultures pending Broad spectrum antibiotics - Vancomycin and zosyn (2) Tachycardia Is this a current diagnosis for this admission?: Yes Plan: Secondary to infection Broad-spectrum antibiotics for treatment IVF bolus x 2L for dehydration Continuous telemetry monitoring (3) History of illicit drug use Is this a current diagnosis for this admission?: Yes Plan: Patient endorses history of IVDU States he has not used IV drugs since Patient admits that he illegally purchases suboxone (does not have rx) in order to 'wean himself' from drugs Patient does not want to receive Beznodiazepines or Narcotics, requesting only tylenol and Motrin for pain control If abscess wound needs to be re-packed, the patient requested stronger medication, but otherwise does not want narcotics Patient is requesting discretion from medical staff because family/friends do not know about his drug use - Time Time Spent with patient: 25-34 minutes Medications reviewed and adjusted accordingly: Yes Anticipated discharge: Home Within: within 36 hours - Inpatient Certification Based on my medical assessment, after consideration of the patient's comorbidities, presenting symptoms, or acuity I expect that the services needed warrant INPATIENT care.: Yes I certify that my determination is in accordance with my understanding of Medicare's requirements for reasonable and necessary INPATIENT services [42 CFR 412.3e].: Yes Medical Necessity: Need for IV Antibiotics, Risk of Complication if Not Cared For in Hospital
[2018-09-02] MEDS ORDERED: PIPERACILLIN SODIUM/TAZOBACTAM 3.375 GM in NORMAL SALINE 100 ML IV SCH (21:00)
[2018-09-02] MEDS ORDERED: CEFEPIME 2 GM/D5W RTU 2 GM/50 ML RTUPB IV SCH (22:00)
[2018-09-02] MEDS: VANCOMYCIN HCL 1,500 MG in DEXTROSE 5%-WATER 250 ML IV SCH (22:13)
[2018-09-03] MEDS ORDERED: OXYCODONE-ACETAMINOPHEN 5-325 MG TABLET PO PRN (01:02)
[2018-09-03] MEDS: OXYCODONE-ACETAMINOPHEN 5-325 MG TABLET PO PRN ×4 (01:24→22:15)
[2018-09-03 05:21] LABS: ABSOLUTE EOSINOPHILS # (AUTO) 0.1 10^3/uL (0.0-0.6); ABSOLUTE LYMPHOCYTES (AUTO) 1.6 10^3/uL (0.5-4.7); ABSOLUTE MONOCYTES (AUTO) 1.2 10^3/uL (0.1-1.4); BASOPHILS % (AUTO) 0.3 % (0-2); EOSINOPHILS % (AUTO) 0.5 % (0-6); HEMATOCRIT 31.7 % (37.9-51.0); HEMOGLOBIN 10.8 g/dL (13.5-17.0); LYMPHOCYTES % (AUTO) 12.6 % (13-45); MEAN CORPUSCULAR HEMOGLOBIN 29.9 pg (27.0-33.4); MEAN CORPUSCULAR VOLUME 88 fl (80-97); MONOCYTES % (AUTO) 9.2 % (3-13); PLATELET COUNT 303 10^3/uL (150-450); RED CELL DISTRIBUTION WIDTH 13.8 % (11.5-14.0); SEGMENTED NEUTROPHILS % (AUTO) 77.4 % (42-78); TOTAL CELLS COUNTED % (AUTO) 100 %
[2018-09-03 05:44] LABS: ALANINE AMINOTRANSFERASE 26 U/L (21-72); ALBUMIN 3.1 g/dL (3.5-5.0); ALKALINE PHOSPHATASE 95 U/L (38-126); ANION GAP 7 (5-19); ASPARTATE AMINO TRANSFERASE 20 U/L (17-59); BILIRUBIN,DIRECT 0.2 mg/dL (0.0-0.4); BILIRUBIN,TOTAL 0.5 mg/dL (0.2-1.3); BLOOD UREA NITROGEN 10 mg/dL (7-20); CALCIUM 8.6 mg/dL (8.4-10.2); CARBON DIOXIDE 23 mmol/L (22-30); CHLORIDE 109 mmol/L (98-107); GLUCOSE 123 mg/dL (75-110); POTASSIUM 3.7 mmol/L (3.6-5.0); SODIUM 139.3 mmol/L (137-145); TOTAL PROTEIN 6.1 g/dL (6.3-8.2)
[2018-09-03] MEDS: VANCOMYCIN HCL 1,500 MG in DEXTROSE 5%-WATER 250 ML IV SCH ×2 (06:32→17:03)
[2018-09-03] MEDS: IBUPROFEN 800 MG TABLET PO PRN ×2 (06:48→17:09)
[2018-09-03] MEDS: MORPHINE SULFATE 10 MG/ML INJ IV PRN ×2 (06:49→14:25)
[2018-09-03] MEDS: PIPERACILLIN SODIUM/TAZOBACTAM 3.375 GM in NORMAL SALINE 100 ML IV SCH ×3 (09:27→22:15)
[2018-09-03] MEDS: ENOXAPARIN SODIUM INJ 30 MG/0.3 ML DISP.SYRIN SUBCUT SCH (09:27)
[2018-09-03] MEDS: NORMAL SALINE 1000 ML 1,000 ML IV PRN (10:58)
[2018-09-03] MEDS ORDERED: GLUCAGON,HUMAN RECOMB 1 MG INJ SUBCUT PRN (15:12)
[2018-09-03] MEDS ORDERED: DEXTROSE 40% GEL 15 GM TUBE PO PRN ×2 (15:12)
[2018-09-03] MEDS ORDERED: DEXTROSE 50%-WATER 25 GM/50 ML DISP.SYRIN IV PRN ×2 (15:12)
--- NOTE | 2018-09-03 15:12 | PDOC PROGRESS REPORT ---
Subjective Progress Note for:: 09/03/18 Reason For Visit: ABSCESS Physical Exam Vital Signs: Temp Pulse Resp BP Pulse Ox 99.6 F 83 16 130/70 H 98 09/03/18 00:34 09/03/18 13:55 09/03/18 00:34 09/03/18 00:34 09/03/18 00:34 Intake & Output 09/02/18 09/03/18 09/04/18 06:59 06:59 06:59 Intake Total 4044 1450 Balance 4044 1450 Weight 67.4 kg Results Laboratory Results: 09/03/18 05:01 09/03/18 05:01 09/03/18 09/03/18 05:01 05:01 WBC 13.0 H RBC 3.60 L Hgb 10.8 L Hct 31.7 L MCV 88 MCH 29.9 MCHC 34.0 RDW 13.8 Plt Count 303 Seg Neutrophils % 77.4 Lymphocytes % 12.6 L Monocytes % 9.2 Eosinophils % 0.5 Basophils % 0.3 Absolute Neutrophils 10.0 H Absolute Lymphocytes 1.6 Absolute Monocytes 1.2 Absolute Eosinophils 0.1 Absolute Basophils 0.0 Sodium 139.3 Potassium 3.7 Chloride 109 H Carbon Dioxide 23 Anion Gap 7 BUN 10 Creatinine 0.74 Est GFR ( Amer) > 60 Est GFR (Non-Af Amer) > 60 Glucose 123 H Calcium 8.6 Magnesium 2.0 Total Bilirubin 0.5 AST 20 ALT 26 Alkaline Phosphatase 95 Total Protein 6.1 L Albumin 3.1 L Impressions: Soft Tissue Neck CT 09/02/18 07:54 IMPRESSION: 4 x 3.2 x 2.5 cm superficial subcutaneous abscess in the right lower lateral neck along the superficial aspect of the distal sternocleidomastoid muscle Assessment & Plan - Diagnosis (1) Abscess of neck Is this a current diagnosis for this admission?: Yes - Plan Summary Plan Summary: This is a 37-year-old male status post incision and drainage of a right neck abscess. The patient is postoperative day #1. I removed his packing at the bedside today. I redressed his wound. There is no active purulence, however there is still a large amount of erythema and induration. There is no significant improvement over the next 12-24 hours, the patient may require further operative exploration to ensure that there is no residual abscess cavity in the deep tissues of the neck. This is been discussed with the patient at length. N.p.o. after midnight and reassessment in the morning.
--- NOTE | 2018-09-03 16:09 | PDOC PROGRESS REPORT ---
Subjective Progress Note for:: 09/03/18 Subjective:: No adverse events overnight. No new complaints. He is been afebrile. Patient tells me in a very open manner about his history of IV drug use, and says he really does not want any IV narcotics and has asked me to take the morphine off of his medication list. Reason For Visit: ABSCESS Physical Exam Vital Signs: Temp Pulse Resp BP Pulse Ox 99.6 F 83 16 130/70 H 98 09/03/18 00:34 09/03/18 13:55 09/03/18 00:34 09/03/18 00:34 09/03/18 00:34 Intake & Output 09/02/18 09/03/18 09/04/18 06:59 06:59 06:59 Intake Total 4044 1450 Balance 4044 1450 Weight 67.4 kg General appearance: PRESENT: no acute distress, cooperative, disheveled Neck exam: PRESENT: lymphadenopathy, tenderness, other - He has a lot of erythema and warmth and tenderness on his neck. The packing in the incision from the surgical I&D shows that it is wicking purulence Respiratory exam: PRESENT: clear to auscultation mariya, symmetrical, unlabored. ABSENT: accessory muscle use, crackles, prolonged expiratory phas, rhonchi, tachypnea, wheezes Cardiovascular exam: PRESENT: RRR, +S1, +S2 Pulses: PRESENT: normal carotid pulses Vascular exam: PRESENT: normal capillary refill GI/Abdominal exam: PRESENT: normal bowel sounds, soft. ABSENT: distended, guarding, rebound, tenderness Extremities exam: ABSENT: clubbing, pedal edema Musculoskeletal exam: PRESENT: normal inspection. ABSENT: deformity Neurological exam: PRESENT: alert, awake, oriented to person, oriented to place, oriented to time, oriented to situation Psychiatric exam: PRESENT: anxious Skin exam: PRESENT: dry, warm Results Laboratory Results: 09/03/18 05:01 09/03/18 05:01 09/03/18 09/03/18 05:01 05:01 WBC 13.0 H RBC 3.60 L Hgb 10.8 L Hct 31.7 L MCV 88 MCH 29.9 MCHC 34.0 RDW 13.8 Plt Count 303 Seg Neutrophils % 77.4 Lymphocytes % 12.6 L Monocytes % 9.2 Eosinophils % 0.5 Basophils % 0.3 Absolute Neutrophils 10.0 H Absolute Lymphocytes 1.6 Absolute Monocytes 1.2 Absolute Eosinophils 0.1 Absolute Basophils 0.0 Sodium 139.3 Potassium 3.7 Chloride 109 H Carbon Dioxide 23 Anion Gap 7 BUN 10 Creatinine 0.74 Est GFR ( Amer) > 60 Est GFR (Non-Af Amer) > 60 Glucose 123 H Calcium 8.6 Magnesium 2.0 Total Bilirubin 0.5 AST 20 ALT 26 Alkaline Phosphatase 95 Total Protein 6.1 L Albumin 3.1 L Impressions: Soft Tissue Neck CT 09/02/18 07:54 IMPRESSION: 4 x 3.2 x 2.5 cm superficial subcutaneous abscess in the right lower lateral neck along the superficial aspect of the distal sternocleidomastoid muscle Assessment and Plan - Diagnosis (1) Abscess of neck Is this a current diagnosis for this admission?: Yes Plan: He is postop day 1 status post surgical I&D of the neck. Cultures are pending, preliminary report suggested gram-positive organism. Blood cultures negative. Surgeries been consulted. Currently on vancomycin and Zosyn. (2) History of illicit drug use Is this a current diagnosis for this admission?: Yes Plan: He is very upfront about his drug use and insists that he does not want any more IV morphine and asked me to remove it from his list. If he winds up needing something IV for pain, I am probably going to discontinue his ibuprofen in favor of IV Toradol. - Time Time Spent with patient: 25-34 minutes
[2018-09-04] MEDS: PIPERACILLIN SODIUM/TAZOBACTAM 3.375 GM in NORMAL SALINE 100 ML IV SCH ×4 (02:35→22:55)
[2018-09-04] MEDS: OXYCODONE-ACETAMINOPHEN 5-325 MG TABLET PO PRN ×5 (02:37→22:56)
[2018-09-04] MEDS: VANCOMYCIN HCL 1,500 MG in DEXTROSE 5%-WATER 250 ML IV SCH ×2 (06:49→18:12)
[2018-09-04] MEDS: NORMAL SALINE 1000 ML 1,000 ML IV PRN ×2 (06:50→18:13)
[2018-09-04 06:55] LABS: VANCOMYCIN,TROUGH 9.8 ug/mL (5.0-20.0)
[2018-09-04 08:44] LABS: HEMATOCRIT 31.6 % (37.9-51.0); HEMOGLOBIN 10.6 g/dL (13.5-17.0); MEAN CORPUSCULAR HEMOGLOBIN 29.5 pg (27.0-33.4); MEAN CORPUSCULAR HGB CONC 33.6 g/dL (32.0-36.0); MEAN CORPUSCULAR VOLUME 88 fl (80-97); PLATELET COUNT 239 10^3/uL (150-450); RED CELL DISTRIBUTION WIDTH 14.1 % (11.5-14.0); WHITE BLOOD COUNT 5.9 10^3/uL (4.0-10.5)
[2018-09-04 09:39] LABS: HEPATITIS A AB IGM Negative (Negative); HEPATITIS B CORE AB IGM Negative (Negative); HEPATITS B SURFACE ANTIGEN Negative (Negative)
--- NOTE | 2018-09-04 09:51 | PDOC PROGRESS REPORT ---
Subjective Progress Note for:: 09/04/18 Subjective:: c/o pain rt neck Reason For Visit: ABSCESS right mid neck Physical Exam Vital Signs: Temp Pulse Resp BP Pulse Ox 97.7 F 72 15 105/53 L 98 09/04/18 07:54 09/04/18 07:54 09/04/18 07:54 09/04/18 07:54 09/04/18 07:54 Intake & Output 09/03/18 09/04/18 09/05/18 06:59 06:59 06:59 Intake Total 4044 4863 Balance 4044 4863 Weight 67.4 kg 73.4 kg General appearance: PRESENT: mild distress Head exam: PRESENT: other - rt neck swollen erythema pt cannot rotate head due to painful neck Eye exam: PRESENT: EOMI Neck exam: PRESENT: other - small incision rt neck at mid scm muscle draining pus with necrotic appearing base pt no sob cannot rotate head due to swelling and pain no stridor no difficulty breathing. Respiratory exam: PRESENT: clear to auscultation mariya Vascular exam: PRESENT: normal capillary refill GI/Abdominal exam: PRESENT: soft Rectal exam: PRESENT: deferred Extremities exam: PRESENT: full ROM Musculoskeletal exam: PRESENT: full ROM Neurological exam: PRESENT: alert, awake, oriented to person, oriented to place, oriented to time Results Laboratory Results: 09/04/18 05:48 09/04/18 05:48 09/04/18 09/04/18 05:48 05:48 WBC 5.9 RBC 3.60 L Hgb 10.6 L Hct 31.6 L MCV 88 MCH 29.5 MCHC 33.6 RDW 14.1 H Plt Count 239 Sodium Cancelled Potassium Cancelled Chloride Cancelled Carbon Dioxide Cancelled Anion Gap Cancelled BUN Cancelled Creatinine 0.75 Est GFR ( Amer) > 60 Est GFR (Non-Af Amer) > 60 Glucose Cancelled Calcium Cancelled Impressions: Soft Tissue Neck CT 09/02/18 07:54 IMPRESSION: 4 x 3.2 x 2.5 cm superficial subcutaneous abscess in the right lower lateral neck along the superficial aspect of the distal sternocleidomastoid muscle Assessment & Plan - Plan Summary Plan Summary: pt with abscess rt neck s/p local i and d now with worsening pain and cellulitis difficulty moving head no stridor or sob recommend, neck exploration with debridment of rt neck discussed risks with pt including possible need for tracheostomy injury to adjacent nerves including spinal accessory, weakness in shoulder, arm and neck muscles injuryi to vocal chord nerves weakness of arm and neck after suirgery need for tracheostomy injury to major blood vessesls in head and neck incluiding jugular, carotid with resulting facial swelling and stroke possible has been discussed. pt is agreeable to surgery.
[2018-09-04 10:16] LABS: HEPATITIS C VIRUS ANTIBODY >11.0 s/co ratio (0.0-0.9)
[2018-09-04] MEDS: ENOXAPARIN SODIUM INJ 30 MG/0.3 ML DISP.SYRIN SUBCUT SCH (11:06)
[2018-09-04 11:38] LABS: ANION GAP 6 (5-19); BLOOD UREA NITROGEN 6 mg/dL (7-20); CALCIUM 9.1 mg/dL (8.4-10.2); CARBON DIOXIDE 26 mmol/L (22-30); CHLORIDE 109 mmol/L (98-107); GLUCOSE 99 mg/dL (75-110); SODIUM 140.5 mmol/L (137-145)
[2018-09-04] MEDS ORDERED: PROPOFOL INJ 200 MG/20 ML VIAL IV ONE (12:57)
[2018-09-04] MEDS ORDERED: FENTANYL CITRATE INJ/PF 100 MCG/2 ML AMPUL ONE (12:57)
[2018-09-04] MEDS ORDERED: MIDAZOLAM 2 MG/2 ML INJ ONE (12:57)
[2018-09-04] MEDS ORDERED: ONDANSETRON HCL INJ/PF 4 MG/2 ML SDV ONE (13:49)
[2018-09-04] MEDS ORDERED: ROCURONIUM BROMIDE INJ 50 MG/5 ML VIAL IV ONE (13:49)
[2018-09-04] MEDS ORDERED: SUCCINYLCHOLINE CHLORIDE INJ 200 MG/10 ML VIAL ONE (13:49)
[2018-09-04] MEDS ORDERED: DEXAMETHASONE SOD PHOSPHATE INJ 4 MG/1 ML VIAL ONE (13:49)
[2018-09-04] MEDS ORDERED: HYDROMORPHONE HCL INJ/PF 2 MG/ML AMPULE ONE (15:15)
[2018-09-04] MEDS ORDERED: FENTANYL CITRATE INJ/PF 100 MCG/2 ML AMPUL IV PRN ×3 (15:52)
[2018-09-04] MEDS ORDERED: DIPHENHYDRAMINE HCL 50 MG/ML VIAL IV PRN (15:52)
[2018-09-04] MEDS ORDERED: ONDANSETRON HCL INJ/PF 4 MG/2 ML SDV IV PRN (15:52)
[2018-09-04] MEDS ORDERED: MORPHINE SULFATE 10 MG/ML INJ IV PRN (15:52)
[2018-09-04] MEDS ORDERED: PROMETHAZINE HCL INJ 25 MG/1 ML VIAL IV PRN (15:52)
[2018-09-04] MEDS ORDERED: MEPERIDINE HCL/PF INJ 25 MG/1 ML DISP.SYRIN IV PRN (15:52)
--- NOTE | 2018-09-04 15:53 | PDOC PROGRESS REPORT ---
Subjective Progress Note for:: 09/04/18 Subjective:: No adverse events overnight. No new complaints. Vital signs been stable. His neck is still really sore and it hurts to move it. He is been afebrile. He said Dr. Jorge is planning to do an exploration and possible debridement of the neck today. Reason For Visit: ABSCESS Physical Exam Vital Signs: Temp Pulse Resp BP Pulse Ox 98.1 F 77 16 118/71 100 09/04/18 11:39 09/04/18 11:39 09/04/18 11:39 09/04/18 11:39 09/04/18 11:39 Intake & Output 09/03/18 09/04/18 09/05/18 06:59 06:59 06:59 Intake Total 4044 4863 350 Balance 4044 4863 350 Weight 67.4 kg 73.4 kg General appearance: PRESENT: no acute distress, cooperative, disheveled Neck exam: PRESENT: lymphadenopathy, tenderness, other - He has a lot of erythema and warmth and tenderness on his neck. Respiratory exam: PRESENT: clear to auscultation mariya, symmetrical, unlabored. ABSENT: accessory muscle use, crackles, prolonged expiratory phas, rhonchi, tachypnea, wheezes Cardiovascular exam: PRESENT: RRR, +S1, +S2 Pulses: PRESENT: normal carotid pulses Vascular exam: PRESENT: normal capillary refill GI/Abdominal exam: PRESENT: normal bowel sounds, soft. ABSENT: distended, guarding, rebound, tenderness Extremities exam: ABSENT: clubbing, pedal edema Musculoskeletal exam: PRESENT: normal inspection. ABSENT: deformity Neurological exam: PRESENT: alert, awake, oriented to person, oriented to place, oriented to time, oriented to situation Psychiatric exam: PRESENT: anxious Skin exam: PRESENT: dry, warm Results Laboratory Results: 09/04/18 05:48 09/04/18 10:33 09/04/18 09/04/18 09/04/18 05:48 05:48 10:33 WBC 5.9 RBC 3.60 L Hgb 10.6 L Hct 31.6 L MCV 88 MCH 29.5 MCHC 33.6 RDW 14.1 H Plt Count 239 Sodium Cancelled 140.5 Potassium Cancelled 4.0 Chloride Cancelled 109 H Carbon Dioxide Cancelled 26 Anion Gap Cancelled 6 BUN Cancelled 6 L Creatinine 0.75 0.79 Est GFR ( Amer) > 60 > 60 Est GFR (Non-Af Amer) > 60 > 60 Glucose Cancelled 99 Calcium Cancelled 9.1 Impressions: Soft Tissue Neck CT 09/02/18 07:54 IMPRESSION: 4 x 3.2 x 2.5 cm superficial subcutaneous abscess in the right lower lateral neck along the superficial aspect of the distal sternocleido mastoid muscle Assessment and Plan - Diagnosis (1) Abscess of neck Is this a current diagnosis for this admission?: Yes Plan: He is postop day 2 status post surgical I&D of the neck. Cultures are pending, initial report showing a streptococcus and now a gram-negative organism. Blood cultures negative. Surgeries been consulted. Currently on vancomycin and Zosyn. Planning for repeat exploration and debridement today. (2) History of illicit drug use Is this a current diagnosis for this admission?: Yes Plan: He is very upfront about his drug use and insists that he does not want any more IV morphine and asked me to remove it from his list. I have discontinued his ibuprofen in favor of IV Toradol. - Time Time Spent with patient: 15-24 minutes
--- NOTE | 2018-09-04 16:23 | Operative Report ---
Nonrecallable Operative Report DATE OF SURGERY: 09/04/18 PREOPERATIVE DIAGNOSIS: right neck abscess POSTOPERATIVE DIAGNOSIS: right neck abscess OPERATION: neck exploration and debridement of neck abscess SURGEON: APURVA MASTERSON ANESTHESIA: GA COMPLICATIONS: none ESTIMATED BLOOD LOSS: 15cc. INTRAOPERATIVE FINDINGS: see dictation PROCEDURE: see dictation
[2018-09-04] MEDS ORDERED: DEXMEDETOMIDINE INJ 80 MCG/20 ML VIAL IV ONE (16:28)
--- NOTE | 2018-09-04 17:19 | OPERATIVE REPORT E ---
Operative Report NAME: KAILEE PERALES : 1980 AGE: 37Y DATE OF SURGERY: 09/04/2018 ROOM: 406 PREOPERATIVE DIAGNOSIS: RIGHT NECK ABSCESS. POSTOPERATIVE DIAGNOSIS: RIGHT NECK ABSCESS. OPERATIVE PROCEDURE: Right neck exploration with incision and drainage of abscess. SURGEON: APURVA MASTERSON M.D. INDICATIONS FOR OPERATION: This is a 37-year-old male who had a previous history of right-sided neck injections for drug use. He presented to the hospital yesterday with a fairly large abscess in his right neck. He underwent a CT scan of the right neck, which shows a fairly large abscess and then incision and drainage 2 days. There was a small subcutaneous cavity noted by the surgeon who drained it. On examination this morning during rounds he is noted to have a large amount of pus draining from the right neck and some necrotic tissue in the bed of the wound. He was, therefore, scheduled for this procedure. DETAILS OF PROCEDURE: The patient was brought to the operating room awake, alert, in stable condition. He was placed on the operating room table in the supine position, induced under general anesthesia, intubated. The right neck was prepped and draped in the usual sterile manner for the procedure. The patient had extensive cellulitis extending from the angle of the mandible all the way down to the sternal notch. He had about a 4 cm long incision over the sternocleidomastoid muscle about 2 fingerbreadths above the clavicle. This was extended towards the sternal notch medially and laterally towards the posterior triangle. Dissection was carried down through platysma muscle, which was markedly thickened, with Bovie cautery. After lifting superior and inferior flaps of platysma muscle there was more pus underneath that plane and on top of the sternocleidomastoid muscle. This was irrigated and drained. The external jugular vein was identified and it appeared to be thrombosed and surrounded by necrotic adventitia. It was taken proximally and distally using 3-0 Vicryl ties to tie off the ends of the vein, it was removed. The sternocleidomastoid muscle was then opened bluntly through its fibers to identify any localized pockets, there were none. I then carried our dissection down through the undersurface of the sternocleidomastoid muscle to the strap muscles, which were opened bluntly to identify the thyroid bed. There was no deep tissue pockets of pus that were identified. However, this whole area was irrigated with normal saline and suctioned dry. There was some necrotic platysma muscle which was excised with Bovie cautery and the base of the abscess cavity now appeared to be clean. I then re-closed the skin and platysma in 1 layer medially and laterally with 2 stitches on each side of 2-0 Nylon suture leaving the majority of the wound open and then packed with an Iodoform impregnated gauze. Hemostasis was obtained with Bovie cautery and digital pressure after the wound had been packed. Sterile dressing was applied on top, which completed the procedure. Estimated blood loss was approximately 10 mL. Sponge and needle counts were correct x2. The patient was awakened in the operating room, extubated, and transferred to recovery in stable condition. No complaints. DICTATING PHYSICIAN: APURVA MASTERSON M.D. [id number] PHY#: [id number] ID: [id number] JOB#: [id number] ACCT: [id number] cc:APURVA MASTERSON M.D. >
[2018-09-04] MEDS: KETOROLAC TROMETHAMINE INJ/PF 30 MG/1 ML SDV IV PRN (22:56)
[2018-09-05] MEDS: PIPERACILLIN SODIUM/TAZOBACTAM 3.375 GM in NORMAL SALINE 100 ML IV SCH ×4 (06:09→22:20)
[2018-09-05] MEDS: OXYCODONE-ACETAMINOPHEN 5-325 MG TABLET PO PRN ×4 (06:13→22:29)
[2018-09-05] MEDS: KETOROLAC TROMETHAMINE INJ/PF 30 MG/1 ML SDV IV PRN ×3 (06:14→22:29)
[2018-09-05] MEDS: VANCOMYCIN HCL 1,500 MG in DEXTROSE 5%-WATER 250 ML IV SCH ×2 (06:21→18:41)
[2018-09-05] MEDS: NORMAL SALINE 1000 ML 1,000 ML IV PRN ×2 (08:13→22:28)
[2018-09-05] MEDS: ENOXAPARIN SODIUM INJ 30 MG/0.3 ML DISP.SYRIN SUBCUT SCH (11:10)
--- NOTE | 2018-09-05 11:42 | PDOC PROGRESS REPORT ---
Subjective Progress Note for:: 09/05/18 Subjective:: right neck incisional pains Reason For Visit: ABSCESS Physical Exam Vital Signs: Temp Pulse Resp BP Pulse Ox 97.9 F 78 16 142/76 H 100 09/05/18 07:39 09/05/18 07:39 09/05/18 07:39 09/05/18 07:39 09/05/18 07:39 Intake & Output 09/04/18 09/05/18 09/06/18 06:59 06:59 06:59 Intake Total 4863 4400 350 Output Total 415 Balance 4863 3985 350 Weight 73.4 kg 72.6 kg Exam: Packing from right neck incision removed. Incision looks clean and not inflamed. Covered with a dry gauze. Results Laboratory Results: 09/04/18 05:48 09/04/18 10:33 09/04/18 10:33 Sodium 140.5 Potassium 4.0 Chloride 109 H Carbon Dioxide 26 Anion Gap 6 BUN 6 L Creatinine 0.79 Est GFR ( Amer) > 60 Est GFR (Non-Af Amer) > 60 Glucose 99 Calcium 9.1 09/02/18 12:58 Neck - Abscess Gram Stain - Final Impressions: Soft Tissue Neck CT 09/02/18 07:54 IMPRESSION: 4 x 3.2 x 2.5 cm superficial subcutaneous abscess in the right lower lateral neck along the superficial aspect of the distal sterno cleidomastoid muscle Assessment & Plan - Time Time Spent with patient: 15-24 minutes - Inpatient Certification Medical Necessity: Need for IV Antibiotics - Plan Summary Plan Summary: Cultures showed Strep and Serratia. No MRSA. Can give another 24 -48 hrs of IV antibiotics then may be discharge with po antibiotics another week and follow up at the Surgical clinic in 7-10 days for removal of sutures.
[2018-09-05] MEDS ORDERED: ONDANSETRON 4 MG TAB.RAPDIS PO PRN (15:00)
--- NOTE | 2018-09-05 19:04 | PDOC PROGRESS REPORT ---
Subjective Progress Note for:: 09/05/18 Subjective:: No adverse events overnight. No new complaints. He said that even though he had surgery and he he is sore, he said his neck already feels much better. He said it does not feel as swollen or tender to palpation she did before. He has had no trouble breathing. No trouble eating or drinking. No fevers. Reason For Visit: ABSCESS Physical Exam Vital Signs: Temp Pulse Resp BP Pulse Ox 98.5 F 84 15 114/56 L 100 09/05/18 15:21 09/05/18 15:21 09/05/18 15:21 09/05/18 15:21 09/05/18 15:21 Intake & Output 09/04/18 09/05/18 09/06/18 06:59 06:59 06:59 Intake Total 4863 4400 923 Output Total 415 Balance 4863 3985 923 Weight 73.4 kg 72.6 kg General appearance: PRESENT: no acute distress, cooperative, disheveled Neck exam: PRESENT: tenderness, other - the erythema and warmth and tenderness on his neck is improved compared to yesterday's exam. Respiratory exam: PRESENT: clear to auscultation mariya, symmetrical, unlabored. ABSENT: accessory muscle use, crackles, prolonged expiratory phas, rhonchi, tachypnea, wheezes Cardiovascular exam: PRESENT: RRR, +S1, +S2 Pulses: PRESENT: normal carotid pulses Vascular exam: PRESENT: normal capillary refill GI/Abdominal exam: PRESENT: normal bowel sounds, soft. ABSENT: distended, guarding, rebound, tenderness Extremities exam: ABSENT: clubbing, pedal edema Musculoskeletal exam: PRESENT: normal inspection. ABSENT: deformity Neurological exam: PRESENT: alert, awake, oriented to person, oriented to place, oriented to time, oriented to situation Psychiatric exam: PRESENT: anxious Skin exam: PRESENT: dry, warm Results Laboratory Results: 09/04/18 05:48 09/04/18 10:33 09/02/18 12:58 Neck - Abscess Gram Stain - Final Impressions: Soft Tissue Neck CT 09/02/18 07:54 IMPRESSION: 4 x 3.2 x 2.5 cm superficial subcutaneous abscess in the right lower lateral neck along the superficial aspect of the distal sternocle idomastoid muscle Assessment and Plan - Diagnosis (1) Abscess of neck Is this a current diagnosis for this admission?: Yes Plan: He had surgery yesterday with a pulse between the platysma and sternocleidomastoid wound irrigated and drained, and he had a thrombosed right EJ which was removed along with some necrotic platysma. Wound care recommendations per surgery. We will continue antibiotics. (2) History of illicit drug use Is this a current diagnosis for this admission?: Yes Plan: . He reiterated his desire to not have any IV narcotics. He said his pain is well controlled on oral Percocet and IV Toradol. - Time Time Spent with patient: 15-24 minutes
[2018-09-06] MEDS: PIPERACILLIN SODIUM/TAZOBACTAM 3.375 GM in NORMAL SALINE 100 ML IV SCH ×2 (05:13→11:28)
[2018-09-06] MEDS: KETOROLAC TROMETHAMINE INJ/PF 30 MG/1 ML SDV IV PRN ×2 (06:48→13:13)
[2018-09-06] MEDS: VANCOMYCIN HCL 1,500 MG in DEXTROSE 5%-WATER 250 ML IV SCH (06:48)
[2018-09-06] MEDS: OXYCODONE-ACETAMINOPHEN 5-325 MG TABLET PO PRN ×2 (06:49→13:13)
[2018-09-06] MEDS ORDERED: ENOXAPARIN SODIUM INJ 40 MG/0.4 ML DISP.SYRIN SUBCUT SCH (10:00)
[2018-09-06 13:00] VITALS: BP 117/51
--- NOTE | 2018-09-06 13:17 | PDOC PROGRESS REPORT ---
Subjective Progress Note for:: 09/06/18 Subjective:: less pains operative site Reason For Visit: ABSCESS Physical Exam Vital Signs: Temp Pulse Resp BP Pulse Ox 97.6 F 68 17 117/51 L 100 09/06/18 12:58 09/06/18 12:58 09/06/18 12:58 09/06/18 12:58 09/06/18 12:58 Intake & Output 09/05/18 09/06/18 09/07/18 06:59 06:59 06:59 Intake Total 4400 2473 250 Output Total 415 Balance 3985 2473 250 Weight 72.6 kg 72.4 kg Exam: Wound looks clean and dry with minimal inflammation. Redressed Results Laboratory Results: 09/04/18 05:48 09/04/18 10:33 09/02/18 12:58 Neck - Abscess Gram Stain - Final 09/02/18 12:58 Neck - Abscess Wound Culture - Final Streptococcus Mitis Serratia Marcescens No Anaerobic Organisms Impressions: Soft Tissue Neck CT 09/02/18 07:54 IMPRESSION: 4 x 3.2 x 2.5 cm superficial subcutaneous abscess in the right lower lateral neck along the superficial aspect of the distal sternocl eidomastoid muscle Assessment & Plan - Time Time Spent with patient: 15-24 minutes - Inpatient Certification Medical Necessity: Need for IV Antibiotics - Plan Summary Plan Summary: Need Visiting nurse follow up for wound care and dressing changes at home, ordered. Continue antibiotics for 48-72 hrs Arrangement for surgical clinic follow up for suture removal in 10 days Will sign off. Call for any questions
--- NOTE | 2018-09-06 16:33 | PDOC DISCHARGE SUMMARY ---
General - Admit/Disc Date/PCP Admission Date/Primary Care Provider: 09/02/18 14:13 Discharge Date: 09/06/18 - Discharge Diagnosis (1) Abscess of neck Is this a current diagnosis for this admission?: Yes Summary: Had an initial I&D and then had to go back to the OR for a second surgical debridement. Grew out a Streptococcus mitis and a Serratia marcescens. Infectious disease has recommended a course of Cipro and Augmentin. He is got wound care instructions from surgery, home health for wound care, and surgical follow-up. (2) History of illicit drug use Is this a current diagnosis for this admission?: Yes Summary: He expressed many times a strong desire to not have products, and actually asked us to take him off of them while he was in the hospital, and did not want any narcotics to go home with. - Additional Information Resuscitation Status: Full Code Discharge Diet: Regular Discharge Activity: Activity As Tolerated, Other Prescriptions: Amox Tr/Potassium Clavulanate [Augmentin 875-125 mg Tablet] 1 tab PO BID #14 tablet Ciprofloxacin HCl [Cipro 500 mg Tablet] 500 mg PO BID #14 tablet Home Medications: Amox Tr/Potassium Clavulanate [Augmentin 875-125 mg Tablet] 1 tab PO BID #14 tablet 09/06/18 Ciprofloxacin HCl [Cipro 500 mg Tablet] 500 mg PO BID #14 tablet 09/06/18 History of Present Illness History of Present Illness: KAILEE PERALES is a 37 year old male with a PMH of nephrolithiasis and IVDU (stopped using ). The patient states he has always noticed a small "lump "on the base of his right neck, very close to a site where he would previously inject illicit drugs. Within the last 48 hours or so, the patient states the lump nearly tripled in size. Growing "from the size of a jelly woodruff to the size of a grape." The patient endorses body aches and chills. He states he took Tylenol at home to alleviate the pain associated with the abscess, but it offered no relief. This prompted the patient to come to the emergency department. Laboratory studies reveal moderate leukocytosis (16) with a left shift, all other laboratory studies including chemistry, urinalysis and Utox were negative. Surgery performed I&D at the bedside, approximately 10 mL of pus were drained from the abscess. Wound culture obtained at this time. The patient was given a dose of vancomycin and clindamycin in the emergency department. Upon assessment, the patient is resting comfortably in bed on room air. The patient endorses mild "soreness "to the abscess site. The patient speaks with very pressured speech, he appears very anxious. He states multiple times that he has not used IV drugs since his last hospitalization in May, which required transfer to [facility] for a vascular injury. The patient is warm to touch. L CTA. S1-S2. Sinus tachycardia noted on the monitor. Moderate-s ized area of erythema at the base of the right neck. Abscess site packed with gauze and iodoform. Plan to admit to hospitalist service for treatment of large neck abscess in a former IV drug abuser. Hospital Course Hospital Course: He was started empirically on vancomycin and cefepime. He was seen in consultation by surgery who performed incision and drainage. He has some persistent redness and swelling afterwards, and had to have another surgical d ebridement. At this time he wound up having a larger incision, and had the platysma reflected in a large amount of pus was seen between the platysma and the sternocleidomastoid. Some of the platysma was also necrotic. This portion was removed. He also was noted to have a thrombosed external jugular vein, and the thrombosed section was removed. Infectious diseases recommended Cipro and Augmentin to cover the organisms that grew out of it. He is been given extensive wound care instructions from surgery and has been set up for home health visits. His labs and examination were reassuring and he was discharged home today in good condition. Physical Exam Vital Signs: Temp Pulse Resp BP Pulse Ox 97.6 F 68 17 117/51 L 100 09/06/18 12:58 09/06/18 12:58 09/06/18 12:58 09/06/18 12:58 09/06/18 12:58 Intake & Output 09/05/18 09/06/18 09/07/18 06:59 06:59 06:59 Intake Total 4400 2473 931 Output Total 415 Balance 3985 2473 931 Weight 72.6 kg 72.4 kg General appearance: PRESENT: no acute distress, cooperative, disheveled Neck exam: PRESENT: tenderness, other - the erythema and warmth and tenderness on his neck is improved compared to yesterday's exam in the wound bed has a minimal amount of draining pus. Respiratory exam: PRESENT: clear to auscultation mariya, symmetrical, unlabored. ABSENT: accessory muscle use, crackles, prolonged expiratory phas, rhonchi, tachypnea, wheezes Cardiovascular exam: PRESENT: RRR, +S1, +S2 Pulses: PRESENT: normal carotid pulses Vascular exam: PRESENT: normal capillary refill GI/Abdominal exam: PRESENT: normal bowel sounds, soft. ABSENT: distended, guarding, rebound, tenderness Extremities exam: ABSENT: clubbing, pedal edema Musculoskeletal exam: PRESENT: normal inspection. ABSENT: deformity Neurological exam: PRESENT: alert, awake, oriented to person, oriented to place, oriented to time, oriented to situation Psychiatric exam: PRESENT: anxious Skin exam: PRESENT: dry, warm Results Laboratory Results: 09/04/18 05:48 09/04/18 10:33 09/02/18 12:58 Neck - Abscess Gram Stain - Final 09/02/18 12:58 Neck - Abscess Wound Culture - Final Streptococcus Mitis Serratia Marcescens No Anaerobic Organisms Impressions: Soft Tissue Neck CT 09/02/18 07:54 IMPRESSION: 4 x 3.2 x 2.5 cm superficial subcutaneous abscess in the right lower lateral neck along the superficial aspect of the distal sternocleidomastoid muscle Qualifiers - * PATIENT BEING DISCHARGED WITH ANY OF THE FOLLOWING DIAGNOSIS: No Plan Time Spent: Greater than 30 Minutes
--- NOTE | 2018-09-06 17:50 | Progress Note ---
Provider Note Provider Note: ID Consult Note - Late Entry Reviewed chart briefly earlier. Pt not seen or examined. Asked to provide input regarding PO switch options. Pt has hx of IVDU. He had a fairly large right lateral neck abscess that required I&D on 09/02. IV vancomycin and Zosyn were empirically started on 09/02. Pt continued to have purulent drainage and was found to have some necrotic tissue in the wound bed, he was taken to the OR again on 09/04 for further exploration and debridement. Initial cultures taken on 09/02 had 3 colonies of Serratia marcescens (susceptible to Bactrim and quinolones but resistant to Augmentin and first and second generation cephalosporins) and 3+ Streptococcus mitis that could not be propagated for susceptibility testing. No anaerobes were recovered. The wound appearance improved subsequently. Pt has no insurance also complicating matters. I do not think he will require a long duration of antibiotics as an outpatient. He has already had 4 days of vancomycin and Zosyn as an inpatient. The wound has been noted to be clean and dry in appearance with minimal inflammation at present. I think that he can continue for another 5 days. Levaquin 750 mg daily would be the best choice I can offer. However, the patient is limited by lack of insurance. If the cost of Levaquin is prohibitive, then I think he would either have to take two different antibiotics - such as Bactrim 1 DS BID or Cipro 500 BID PO for the Serratia and try either amoxicillin or clindamycin for the Streptococcus mitis. Augmentin could be considered rather than amoxicillin, if there is any concern regarding unrecovered anaerobes. If he cannot take two antibiotics due to cost, then only focusing on the Streptococcus mitis that predominated culture growth might be sufficient, particularly in light of adequate source control. Jossue Zamorano MD [facility] Infectious Diseases pager [phone]
== END 2018-09-06 14:53 | disposition home or self-care (01) | DRG 603 ==
LOC: ER 07:28 → EH 14:13 → 4N 18:19
PROVIDERS: ADMIT Hospitalist; ATTEND Hospitalist
PROC: 0J943ZX Drainage of Right Neck Subcutaneous Tissue and Fascia, Percutaneous Approach, Diagnostic (ICD-10-PCS; principal; 2018-09-02)
DX: L02.11 Cutaneous abscess of neck (principal); B95.4 Other streptococcus as the cause of diseases classified elsewhere; I10 Essential (primary) hypertension; F17.210 Nicotine dependence, cigarettes, uncomplicated; F41.9 Anxiety disorder, unspecified
CPT/HCPCS: 300; 36415; 70491; 80048; 80053; 80074; 80202; 80307; 81001; 82565; 83735; 85025; 85027; 86701; 87040; 87070; 87075; 87077; 87186; 87205; 96365; 96367; 96375; 96376; 99285; A6266; J0330; J1100; J1170; J1650; J1885; J2250; J2270; J2405; J2543; J2704; J3010; J3370; J3490; J7030; J7060

== ENCOUNTER 2018-11-12 17:07 | Emergency (ER) | payer SELFPAY ==
[2018-11-12 17:19] VITALS: BP 165/93
[2018-11-12] MEDS ORDERED: PENICILLIN V POTASSIUM 500 MG TABLET PO ONE (18:19)
[2018-11-12] MEDS ORDERED: IBUPROFEN 800 MG TABLET PO ONE (18:23)
--- NOTE | 2018-11-12 18:24 | ER Document Report ---
HPI - HPI Time Seen by Provider: 11/12/18 17:57 Pain Level: 4 Notes: This is a 38-year-old male presenting to the emergency department chief complaint of possible abscess to his facial area. Patient reports he has pain between his eye and his nose. He thinks this might be coming from bad teeth. He denies any drainage from the area, denies any fevers or chills. - CONSTITUTIONAL Constitutional: DENIES: Fever, Chills - EENT EENT: DENIES: Sore Throat, Ear Pain, Eye problems - NEURO Neurology: DENIES: Headache, Weakness, Vision blurred, Dizzinesss / Vertigo - CARDIOVASCULAR Cardiovascular: DENIES: Chest pain - RESPIRATORY Respiratory: DENIES: Trouble Breathing, Coughing - GASTROINTESTINAL Gastrointestinal: DENIES: Abdominal Pain, Black / Bloody Stools - URINARY Urinary: DENIES: Dysuria, Urgency, Frequency - MUSCULOSKELETAL Musculoskeletal: DENIES: Extremity pain Past Medical History - General Information source: Patient - Social History Smoking Status: Never Smoker Family History: Reviewed & Not Pertinent Patient has suicidal ideation: No Patient has homicidal ideation: No - Past Medical History Cardiac Medical History: Reports: Hx Hypertension, Hx Heart Murmur Neurological Medical History: Reports: Hx Migraine Renal/ Medical History: Reports: Hx Kidney Stones. Denies: Hx Peritoneal Dialysis Psychiatric Medical History: Reports: Hx Anxiety, Hx Depression Past Surgical History: Reports: Hx Kidney (Renal Surgery) - Ureteral stent, Hx Tonsillectomy - Immunizations Immunizations up to date: Yes Hx Diphtheria, Pertussis, Tetanus Vaccination: Yes Hx Pneumococcal Vaccination: 05/28/18 Vertical Provider Document - CONSTITUTIONAL Notes: PHYSICAL EXAMINATION: GENERAL: Well-appearing, well-nourished and in no acute distress. HEAD: Atraumatic, normocephalic. EYES: Pupils equal round extraocular movements intact, conjunctiva are normal. ENT: Nares patent, erythema noted along the gumline at teeth #5, 6 and 7. No drainable abscess identified. NECK: Normal range of motion LUNGS: No respiratory distress Musculoskeletal: Normal range of motion NEUROLOGICAL: Normal speech, normal gait. PSYCH: Normal mood, normal affect. SKIN: Warm, Dry, normal turgor, no rashes or lesions noted. - INFECTION CONTROL TRAVEL OUTSIDE OF THE [place] IN LAST 30 DAYS: No Course - Re-evaluation Re-evalutation: Examination is most consistent with dental infection. Patient has had recurrent dental infections in the past due to history of IV drug use and multiple dental caries. Patient will be started on penicillin, first dose given here in the emergency department. Patient encouraged to take ibuprofen for pain. Patient verbalizes understanding and agreement with this plan. - Vital Signs Vital signs: Temp Pulse Resp BP Pulse Ox 98.5 F 106 H 18 165/93 H 100 11/12/18 17:16 11/12/18 17:16 11/12/18 17:16 11/12/18 17:16 11/12/18 17:16 Discharge - Discharge Clinical Impression: Dental abscess Condition: Stable Disposition: HOME, SELF-CARE Additional Instructions: Dental Infection or Abscess You have an infection, perhaps an abscess (pus formation) of the gum around one of your teeth, which is probably decayed. If there is an abscess, it may drain on its own or it may need to be opened or lanced. Severe swelling or drainage around a tooth usually means a deep dental abscess which usually requires evaluation and treatment by a dentist or oral surgeon. Antibiotics may be prescribed while awaiting dental treatment. If you develop high fever with chills, worsening pain, or increasing swelling in the area, see a dentist or oral surgeon immediately or return to the Emergency Department immediately. Please take antibiotics as prescribed. Finish the entire course even if your symptoms improve. You may also apply warm compresses to the area. Take ibuprofen 600 mg every 6 hours as this will help with the inflammation and pain. Prescriptions: Penicillin V Potassium [Penicillin Vk 500 mg Tablet] 500 mg PO BID #20 tablet
== END 2018-11-12 18:33 | disposition home or self-care (01) ==
LOC: ER 17:07
DX: K04.7 Periapical abscess without sinus (principal)
CPT/HCPCS: 99282